=== PATIENT | male | born 1955 | race Caucasian/White ===

== ENCOUNTER 2023-04-12 11:51 | Inpatient (IN) ==
[2023-04-12] MEDS ORDERED: NITROSTAT SL PRN (12:41)
[2023-04-12 15:05] LABS: BASOPHILS # (AUTO) 0.1 X10^3/uL (0.0-0.1); BASOPHILS % (AUTO) 0.7 % (0.2-1.0); EOSINOPHILS # (AUTO) 0.1 x10^3/uL (0.0-0.2); EOSINOPHILS % (AUTO) 1.5 % (0.9-2.9); HEMATOCRIT 41.7 % (42.0-54.0); HEMOGLOBIN 13.9 g/dL (13.5-18.0); LYMPHOCYTES # (AUTO) 1.1 X10^3/uL (1.3-2.9); LYMPHOCYTES % (AUTO) 13.7 % (21.0-51.0); MEAN CORPUSCULAR HEMOGLOBIN 30.4 pg (27.0-34.0); MEAN CORPUSCULAR HGB CONC 33.3 g/dL (33.0-35.0); MEAN CORPUSCULAR VOLUME 91.3 fL (80.0-100.0); MEAN PLATELET VOLUME 7.7 fL (7.4-11.0); MONOCYTES # (AUTO) 0.8 x10^3/uL (0.3-0.8); MONOCYTES % (AUTO) 9.5 % (0.0-13.0); NEUTROPHILS # (AUTO) 6.1 x10^3/uL (2.2-4.8); NEUTROPHILS % (AUTO) 74.6 % (42.0-75.0); PLATELET COUNT 250 X10^3/uL (150.0-450.0); RED BLOOD COUNT 4.57 X10^6/uL (4.7-6.0); RED CELL DISTRIBUTION WIDTH 15.9 % (11.6-16.5); WHITE BLOOD COUNT 8.2 X10^3/uL (3.6-10.0)
[2023-04-12 15:12] LABS: INR 1.29 (0.8-1.3)
[2023-04-12 15:15] LABS: ALANINE AMINOTRANSFERASE 15 Units/L (12-78); ALBUMIN 3.3 g/dL (3.4-5.0); ALKALINE PHOSPHATASE 155 Units/L (46-116); ASPARTATE AMINO TRANSFERASE 15 Units/L (15-37); BLOOD UREA NITROGEN 96 mg/dL (7-18); CARBON DIOXIDE 33.6 mmol/L (21-32); CHLORIDE 100 mmol/L (98-107); COR CA(FOR HYPOALB) 8.6 mg/dL (8.5-10.1); GLUCOSE 91 mg/dL (65-99); POTASSIUM 3.3 mmol/L (3.5-5.1); SODIUM 143 mmol/L (136-145); TOTAL PROTEIN 6.9 g/dL (6.4-8.2); eGFR NON BLACK RACES 18 (>60)
[2023-04-12 15:21] VITALS: BMI 45.8
[2023-04-12] MEDS: LR 1,000 ML IV 1,000 ML IV SCH (15:23)
--- NOTE | 2023-04-12 15:40 | DR.UPDATE ---
H&P UPDATE Review Yes Any changes to H&P?: No
[2023-04-12] MEDS ORDERED: K-DUR TAB 20 MEQ PO ONE (16:00)
[2023-04-12] MEDS ORDERED: PHARMACY CONSULT - POTASSIUM & MAGNESIUM XX SCH (16:00)
[2023-04-12] MEDS: ELIQUIS PO SCH (20:30)
[2023-04-12] MEDS: COREG TAB 25 MG PO SCH (20:30)
[2023-04-12] MEDS: ZOSYN VIAL 2.25 GRAMS 2.25 G in NS 100 ML IV 100 ML IV SCH (22:29)
[2023-04-13] MEDS: LR 1,000 ML IV 1,000 ML IV SCH ×2 (02:35→15:24)
[2023-04-13 06:54] LABS: BLOOD UREA NITROGEN 89 mg/dL (7-18); CARBON DIOXIDE 34.8 mmol/L (21-32); CHLORIDE 100 mmol/L (98-107); GLUCOSE 80 mg/dL (65-99); SODIUM 143 mmol/L (136-145); eGFR NON BLACK RACES 22 (>60)
[2023-04-13 06:59] LABS: POTASSIUM 2.8 mmol/L (3.5-5.1)
[2023-04-13] MEDS ORDERED: PHARMACY CONSULT - POTASSIUM & MAGNESIUM XX SCH (07:00)
[2023-04-13] MEDS: K-DUR TAB 20 MEQ PO SCH ×5 (08:15→20:54)
[2023-04-13] MEDS: MAGNESIUM SULFATE 1 GRAM/100 mL PREMIX 1 G/100 ML BAG IV SCH ×2 (08:15→10:06)
[2023-04-13] MEDS: NS + KCL 20 MEQ/L 1,000 ML IV SCH ×3 (08:15→22:15)
--- NOTE | 2023-04-13 08:46 | RAD ---
HISTORYPreop toe amputationSTUDYAP chestCOMPARISONAugust 2020FINDINGSSimilar cardiomegaly with sternal wires and stable pacemaker position. There is no evidence for pneumonia, pulmonary edema/CHF or significant pleural effusion.IMPRESSIONNo interval change or acute findings.Electronically signed by: MARIA ESTHER ABRAMS (Apr 13, 2023 08:45:40)
[2023-04-13] MEDS ORDERED: LASIX PO SCH (09:00)
[2023-04-13] MEDS ORDERED: ENTRESTO 24/26 MG TABLET PO SCH (09:00)
[2023-04-13] MEDS: ELIQUIS PO SCH ×2 (10:05→20:54)
[2023-04-13] MEDS: COREG TAB 25 MG PO SCH ×2 (10:05→20:56)
[2023-04-13] MEDS: MAG-OX TAB PO SCH ×2 (10:06→20:56)
[2023-04-13] MEDS: LIPITOR TAB 80 MG PO SCH (10:06)
[2023-04-13] MEDS: ZOSYN VIAL 2.25 GRAMS 2.25 G in NS 100 ML IV 100 ML IV SCH ×2 (10:07→20:57)
[2023-04-13] MEDS: PROTONIX TAB 40 MG PO SCH (10:07)
[2023-04-13] MEDS: ZAROXOLYN PO SCH (10:07)
[2023-04-13] MEDS: COLACE CAP 100 MG PO SCH ×2 (12:36→20:55)
[2023-04-13] MEDS ORDERED: COLACE CAP 100 MG PO SCH (14:00)
[2023-04-13] MEDS: PERCOCET TAB 5/325 MG PO PRN ×2 (16:39→21:30)
[2023-04-13] MEDS: MILK OF MAGNESIA PO SCH (20:54)
[2023-04-14] MEDS: LR 1,000 ML IV 1,000 ML IV SCH ×2 (04:00→17:48)
[2023-04-14 05:49] LABS: BASOPHILS # (AUTO) 0.1 X10^3/uL (0.0-0.1); BASOPHILS % (AUTO) 0.7 % (0.2-1.0); EOSINOPHILS # (AUTO) 0.1 x10^3/uL (0.0-0.2); EOSINOPHILS % (AUTO) 0.9 % (0.9-2.9); HEMOGLOBIN 13.8 g/dL (13.5-18.0); LYMPHOCYTES # (AUTO) 0.7 X10^3/uL (1.3-2.9); LYMPHOCYTES % (AUTO) 7.1 % (21.0-51.0); MEAN CORPUSCULAR HEMOGLOBIN 30.8 pg (27.0-34.0); MEAN CORPUSCULAR HGB CONC 33.7 g/dL (33.0-35.0); MEAN CORPUSCULAR VOLUME 91.3 fL (80.0-100.0); MONOCYTES % (AUTO) 10.1 % (0.0-13.0); NEUTROPHILS # (AUTO) 8.1 x10^3/uL (2.2-4.8); NEUTROPHILS % (AUTO) 81.2 % (42.0-75.0); PLATELET COUNT 242 X10^3/uL (150.0-450.0); RED BLOOD COUNT 4.49 X10^6/uL (4.7-6.0); RED CELL DISTRIBUTION WIDTH 15.8 % (11.6-16.5)
[2023-04-14 06:08] LABS: CALCIUM 8.4 mg/dL (8.5-10.1); CARBON DIOXIDE 33.7 mmol/L (21-32); COR CA(FOR HYPOALB) 9.2 mg/dL (8.5-10.1); CREATININE 2.67 mg/dL (0.70-1.30); POTASSIUM 3.4 mmol/L (3.5-5.1); TOTAL PROTEIN 6.7 g/dL (6.4-8.2)
[2023-04-14] MEDS: COREG TAB 25 MG PO SCH ×2 (09:24→20:49)
[2023-04-14] MEDS: COLACE CAP 100 MG PO SCH ×2 (09:24→20:48)
[2023-04-14] MEDS: ELIQUIS PO SCH ×2 (09:25→20:48)
[2023-04-14] MEDS: K-DUR TAB 20 MEQ PO SCH ×2 (09:25→20:49)
[2023-04-14] MEDS: LIPITOR TAB 80 MG PO SCH (09:25)
[2023-04-14] MEDS: ZOSYN VIAL 2.25 GRAMS 2.25 G in NS 100 ML IV 100 ML IV SCH ×2 (09:26→20:51)
[2023-04-14] MEDS: ZAROXOLYN PO SCH (09:26)
[2023-04-14] MEDS: MAG-OX TAB PO SCH ×2 (09:26→20:49)
[2023-04-14] MEDS: PROTONIX TAB 40 MG PO SCH (09:26)
[2023-04-14] MEDS: NS + KCL 20 MEQ/L 1,000 ML IV SCH ×2 (11:46→23:05)
[2023-04-14] MEDS: PERCOCET TAB 5/325 MG PO PRN ×2 (15:25→20:13)
[2023-04-14] MEDS: MILK OF MAGNESIA PO SCH (20:51)
--- NOTE | 2023-04-14 23:52 | NOTE.SOAP ---
Soap Note Note for Day of Date of Exam: 04/13/23 Subjective Data Subjective Data: PAtient c/o pain right leg. Receiving antibiotics Objective Data Temperature: 99 F Pulse Rate: 70 Respiratory Rate: 20 Blood Pressure: 165/77 O2 Sat by Pulse Oximetry: 98 Objective Data: Redness improving right foot. Cr=3.1, WBC=10 Assessment Assessment: Ischemic right foot , possible infection Plan Plan: Unable to perform CTA due to elevated creatinine. Redness improving with elevation and IV antibiotics. Will hold Lasix and and continue IV hydration.
--- NOTE | 2023-04-14 23:59 | NOTE.SOAP ---
Soap Note Note for Day of Date of Exam: 04/14/23 Subjective Data Subjective Data: Still c/o right leg pain consistent with ischemia . Objective Data Temperature: 97.7 F Pulse Rate: 76 Respiratory Rate: 20 Blood Pressure: 150/72 O2 Sat by Pulse Oximetry: 98 Objective Data: Redness continues to improve . Cr decreased to 2.76.No increased SOB since the Lasix was stopped. Assessment Assessment: Ischemic right foot. Possible infection Plan Plan: On table arteriogram in AM and possible right leg arterial intervention.
[2023-04-15] MEDS: LR 1,000 ML IV 1,000 ML IV SCH ×2 (05:34→19:21)
--- NOTE | 2023-04-15 06:05 | EKG ---
Test Reason : cp Blood Pressure : */* mmHG Vent. Rate : 73 BPM Atrial Rate : 73 BPM P-R Int : 112 ms QRS Dur : 160 ms QT Int : 510 ms P-R-T Axes : 83 160 92 degrees QTc Int : 561 ms Atrial-sensed ventricular-paced rhythm Biventricular pacemaker detected Abnormal ECG No previous ECGs available Confirmed by Greg Crooks ([id number]) on 04/15/2023 7:56:41 PM Referred By: Confirmed By: Greg Crooks
[2023-04-15 08:26] LABS: CALCIUM 8.2 mg/dL (8.5-10.1); CARBON DIOXIDE 33.4 mmol/L (21-32); CREATININE 2.53 mg/dL (0.70-1.30); POTASSIUM 3.9 mmol/L (3.5-5.1)
[2023-04-15] MEDS: ZOSYN VIAL 2.25 GRAMS 2.25 G in NS 100 ML IV 100 ML IV SCH ×2 (08:40→20:39)
[2023-04-15] MEDS ORDERED: VERSED ONE (10:14)
[2023-04-15] MEDS ORDERED: FENTANYL VIAL INJ 100 mcg ONE (10:14)
[2023-04-15] MEDS ORDERED: DIPRIVAN VIAL 20 ML ONE ×2 (10:15→13:08)
[2023-04-15] MEDS ORDERED: HEPARIN SODIUM INJ 5000 UNITS ONE ×2 (10:19→12:45)
[2023-04-15] MEDS ORDERED: MARCAINE 0.5% ONE (10:22)
[2023-04-15] MEDS ORDERED: HEPARIN SODIUM IN D5W 75,000 UNITS/1,500 ML BAG ONE (10:22)
[2023-04-15] MEDS ORDERED: NS 1,000 ML IV 1,000 ML ONE (10:39)
[2023-04-15] MEDS ORDERED: KETAMINE HCL ONE (11:20)
[2023-04-15] MEDS ORDERED: NS 500 ML IV 500 ML IV ONE (12:46)
--- NOTE | 2023-04-15 13:47 | OR.IMMED ---
IMMEDIATE POST-OP NOTE Immediate Post-Op Note Pre-Op Diagnosis: critical ischemia right leg with impending loss of foot Post-Op Diagnosis: same Procedure: arteriogram right leg, atherectomy and angioplasty right anterior tibial artery and right tibial peroneal trunk. Description of Procedure: see operative summary Surgeon/Laundry Equipment Operator: Breonna Findings: stenosis right tibial peroneal trunk, complete total occlusion proximal right anterior tibial artery, posterior tibial completely occluded, reconstitution of right peroneal artery. Estimated Blood Loss: 100 cc Complications: none Progress Notes: Return to floor, diet and begin Eliquis.
[2023-04-15] MEDS: K-DUR TAB 20 MEQ PO SCH ×2 (15:18→20:39)
[2023-04-15] MEDS: LIPITOR TAB 80 MG PO SCH (15:18)
[2023-04-15] MEDS: COREG TAB 25 MG PO SCH ×2 (15:18→20:39)
[2023-04-15] MEDS: MAG-OX TAB PO SCH ×2 (15:19→20:40)
[2023-04-15] MEDS: ELIQUIS PO SCH ×2 (15:19→22:10)
[2023-04-15] MEDS: ZAROXOLYN PO SCH (15:19)
[2023-04-15] MEDS: COLACE CAP 100 MG PO SCH ×2 (15:19→20:39)
[2023-04-15] MEDS: PROTONIX TAB 40 MG PO SCH (15:19)
[2023-04-15] MEDS: NS + KCL 20 MEQ/L 1,000 ML IV SCH (15:45)
[2023-04-15] MEDS: MILK OF MAGNESIA PO SCH (20:39)
[2023-04-15] MEDS ORDERED: ELIQUIS PO SCH (21:00)
[2023-04-16] MEDS: LR 1,000 ML IV 1,000 ML IV SCH ×3 (05:00→20:44)
[2023-04-16 05:51] LABS: BASOPHILS % (AUTO) 0.3 % (0.2-1.0); EOSINOPHILS # (AUTO) 0.1 x10^3/uL (0.0-0.2); EOSINOPHILS % (AUTO) 0.8 % (0.9-2.9); HEMATOCRIT 34.2 % (42.0-54.0); LYMPHOCYTES # (AUTO) 0.7 X10^3/uL (1.3-2.9); LYMPHOCYTES % (AUTO) 6.8 % (21.0-51.0); MEAN CORPUSCULAR HEMOGLOBIN 30.6 pg (27.0-34.0); MEAN CORPUSCULAR HGB CONC 33.3 g/dL (33.0-35.0); MEAN PLATELET VOLUME 8.5 fL (7.4-11.0); MONOCYTES # (AUTO) 0.9 x10^3/uL (0.3-0.8); NEUTROPHILS # (AUTO) 8.2 x10^3/uL (2.2-4.8); NEUTROPHILS % (AUTO) 83.1 % (42.0-75.0); PLATELET COUNT 208 X10^3/uL (150.0-450.0); RED BLOOD COUNT 3.72 X10^6/uL (4.7-6.0); RED CELL DISTRIBUTION WIDTH 15.4 % (11.6-16.5); WHITE BLOOD COUNT 9.9 X10^3/uL (3.6-10.0)
[2023-04-16 05:52] LABS: HEMOGLOBIN 11.4 g/dL (13.5-18.0)
[2023-04-16 05:55] LABS: CALCIUM 8.1 mg/dL (8.5-10.1); CARBON DIOXIDE 32.1 mmol/L (21-32); CREATININE 2.25 mg/dL (0.70-1.30); POTASSIUM 4.4 mmol/L (3.5-5.1)
[2023-04-16] MEDS: COLACE CAP 100 MG PO SCH ×2 (08:44→20:41)
[2023-04-16] MEDS: COREG TAB 25 MG PO SCH ×2 (08:44→20:42)
[2023-04-16] MEDS: K-DUR TAB 20 MEQ PO SCH ×2 (08:46→20:46)
[2023-04-16] MEDS: ELIQUIS PO SCH ×2 (08:46→20:41)
[2023-04-16] MEDS: LIPITOR TAB 80 MG PO SCH (08:46)
[2023-04-16] MEDS: PROTONIX TAB 40 MG PO SCH (08:47)
[2023-04-16] MEDS: MAG-OX TAB PO SCH ×2 (08:47→20:45)
[2023-04-16] MEDS: ZAROXOLYN PO SCH (08:48)
[2023-04-16] MEDS: ZOSYN VIAL 2.25 GRAMS 2.25 G in NS 100 ML IV 100 ML IV SCH ×2 (08:52→20:39)
[2023-04-16] MEDS: NovoLIN R (or HumuLIN R) SC PRN ×3 (12:20→21:51)
--- NOTE | 2023-04-16 15:22 | NOTE.SOAP ---
Soap Note Note for Day of Date of Exam: 04/16/23 Subjective Data Subjective Data: Patient seen bedside today with nursing staff and present. Patient is in the middle of breathing treatment and has cpap on. This makes conversation difficult. Patient is known to Dr. Galvin and Dr. Ellsworth. Denies f,c,n,v, and cp at time of interview. Admits SOB. Objective Data Objective Data: Right foot demonstrates gangrenous digits to 2-4 with discoloration of the hallux and 5th digit. There is malodor and purulence appreciated at the junction between the dysvascular tissue and what appears to be viable skin. There is a faintly palpable DP on the right side, I cannot palpate a PT. CFT is delayed/sluggish to all digits of the right foot. Pedal hair absent. Mild non- pitting edema present to pretibial region bilaterally. Protective senation is diminished in distal extremities in stocking distribution bilaterally. No focal deficits. Left sided BKA noted. Assessment Assessment: -Gangrene of the right foot -PAD with tissue loss - s/p revascularization procedure with Dr. 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 Ellsworth for TMA of the right side. - NPO after midnight. Consent to be placed on chart prior to surgery. - Continue antibiotics. Cultures taken in office showed Coag Negative Staph with no resistances. - Betadine paint to toes with gauze digits. - WBAT from a foot and ankle POV, however, may need to limit motion after Dr. Ravi's procedure, per his notes/orders. - Will follow
[2023-04-16] MEDS: PERCOCET TAB 5/325 MG PO PRN (15:50)
[2023-04-16] MEDS: VIBRAMYCIN PO SCH ×2 (16:42→20:41)
[2023-04-16] MEDS: MILK OF MAGNESIA PO SCH (20:41)
--- NOTE | 2023-04-17 | NOTE.SOAP ---
Soap Note Note for Day of Date of Exam: 04/16/23 Subjective Data Subjective Data: POD # 1 after revascularization of the right leg. Doing well. Discussed right transmetatarsal amputation with Podiatry Objective Data Temperature: 97.7 F Pulse Rate: 76 Respiratory Rate: 70 Blood Pressure: 150/72 O2 Sat by Pulse Oximetry: 98 Objective Data: Gangrenous skin of the distal toes right foot. Excellent doppler signals rightg DP and PT.Hgb=11.4, Cr=2.25 Assessment Assessment: S/P successful revascularization right foot Plan Plan: Podiatry planning right TMA tomorrow.
[2023-04-17] MEDS ORDERED: PHARMACY CONSULT - POTASSIUM & MAGNESIUM XX SCH (02:00)
[2023-04-17] MEDS: ELIQUIS PO SCH ×2 (08:25→21:54)
[2023-04-17] MEDS: PROTONIX TAB 40 MG PO SCH (08:25)
[2023-04-17] MEDS: COLACE CAP 100 MG PO SCH ×2 (08:25→21:54)
[2023-04-17] MEDS: LIPITOR TAB 80 MG PO SCH (08:25)
[2023-04-17] MEDS: VIBRAMYCIN PO SCH ×2 (08:26→21:54)
[2023-04-17] MEDS: LR 1,000 ML IV 1,000 ML IV SCH ×2 (11:31→23:00)
[2023-04-17] MEDS ORDERED: MARCAINE 0.25% INJ ONE (11:45)
[2023-04-17] MEDS ORDERED: NS 100 ML IV 100 ML ONE (11:48)
[2023-04-17] MEDS ORDERED: LR 1,000 ML IV 1,000 ML IV ONE (11:48)
[2023-04-17] MEDS ORDERED: VERSED ONE (11:49)
[2023-04-17] MEDS ORDERED: FENTANYL VIAL INJ 250 mcg ONE (11:49)
--- NOTE | 2023-04-17 11:50 | NOTE.SOAP ---
Soap Note Note for Day of Date of Exam: 04/17/23 Subjective Data Subjective Data: patient seen bedside today. using CPAP. present. no issues. seeing for gangrene of the right foot. hx of left leg ampuation. Objective Data Objective Data: right foot with gangrene and necrosis of toes 2,3,4 of the distal protion dorsally. nail involvement. toes arm. CFT instant to palntar flap under pulp of toe. Assessment Assessment: 67 M with gangrene with the right forefoot toes 2,3,4. s/p intervention by vascular with revacularization. Plan Plan: discussed with and patient options. discussed possible need for MILO. discussed TMA vs. toe disarticulation vs. partial digital amputations. I feel that we may be able to do partial digital amputations of toes 2,3,4 and not have to be more aggressive. this may allow for WB in sx shoe after surgery to allow for transfers. if have to take all the toes will need MILO and splint. we will make intra op decision and and patient agree. i feel perfusion to the foot at this time should be adequate after speaking with Dr. Ravi and reviewing notes and studies.
[2023-04-17] MEDS ORDERED: FENTANYL VIAL INJ 100 mcg ONE (11:51)
[2023-04-17] MEDS ORDERED: DIPRIVAN VIAL 20 ML ONE (11:52)
[2023-04-17] MEDS ORDERED: ANCEF VIAL 1 GRAM ONE ×2 (11:52→11:53)
[2023-04-17] MEDS ORDERED: KETAMINE HCL ONE (12:00)
[2023-04-17] MEDS ORDERED: NARCAN INJ ONE ×2 (12:15→12:19)
[2023-04-17] MEDS ORDERED: BRIDION ONE (12:57)
[2023-04-17 17:02] VITALS: RESP 20
[2023-04-17] MEDS: ZAROXOLYN PO SCH (17:02)
[2023-04-17] MEDS: COREG TAB 25 MG PO SCH ×2 (17:02→21:54)
[2023-04-17] MEDS: ZOSYN VIAL 2.25 GRAMS 2.25 G in NS 100 ML IV 100 ML IV SCH ×2 (17:03→21:54)
[2023-04-17] MEDS: PERCOCET TAB 5/325 MG PO PRN ×2 (19:45→19:46)
[2023-04-17] MEDS: MILK OF MAGNESIA PO SCH (21:54)
[2023-04-17] MEDS: NovoLIN R (or HumuLIN R) SC PRN (21:55)
--- NOTE | 2023-04-17 23:36 | NOTE.SOAP ---
Soap Note Note for Day of Date of Exam: 04/17/23 Subjective Data Subjective Data: S/p Partial amputation of toes 2,3 and 4 on the right foot. All wounds closed. Good bleeding according to doctor Jodee. Objective Data Temperature: 98.3 F Pulse Rate: 73 Respiratory Rate: 20 Blood Pressure: 129/71 O2 Sat by Pulse Oximetry: 93 Objective Data: As above . Right foot with biphasic doppler signals of the PT and DP Assessment Assessment: S/p revascularization right foot and partial amputations of right toes 2,3 and 4. Plan Plan: Discharge home in the AM. Will be on Xarelto and aspirin.
[2023-04-18] MEDS: COLACE CAP 100 MG PO SCH (09:07)
[2023-04-18] MEDS: ELIQUIS PO SCH (09:08)
[2023-04-18] MEDS: ZAROXOLYN PO SCH (09:08)
[2023-04-18] MEDS: LIPITOR TAB 80 MG PO SCH (09:08)
[2023-04-18] MEDS: PROTONIX TAB 40 MG PO SCH (09:08)
[2023-04-18] MEDS: COREG TAB 25 MG PO SCH (09:08)
[2023-04-18] MEDS: ZOSYN VIAL 2.25 GRAMS 2.25 G in NS 100 ML IV 100 ML IV SCH (09:09)
[2023-04-18] MEDS: VIBRAMYCIN PO SCH (09:09)
[2023-04-18 12:21] VITALS: BP 133/63; PULSE 70; TEMP 97.9; O2SAT 93
[2023-04-18] MEDS: LR 1,000 ML IV 1,000 ML IV SCH (12:25)
--- NOTE | 2023-04-18 12:43 | W.DIS.FURT ---
Summary of Discharge Discharge Summary of Date Date of Exam: 04/18/23 Admission Date Date of Admission: 04/12/23 Admission Diagnosis Hospital Course: This is a 68 year old male who I saw originally in 2020 for an ischemic right leg requiring drug-coated balloon angioplasty of the right popliteal artery and superficial femoral arteries . At that time he had poor run off but I was unable to get a wire across the runoff. He has done well with relief of pain until 04/12/2023 when he was sent to my office with severe ischemic changes of the right foot with dry gangrene of the tips of the second ,third and fourth toes as well as dependent rubor and possible cellulitis. Past medical history of congestive heart failure ( on Entresto) history of left below knee amputation after failed bypass. Also with history of coronary artery disease which is stable , hypertension, and chronic kidney disease. On seeing him with these problems he was admitted with plans to begin IV antibiotics and to do a CT angiogram ,however his creatinine was greater than 3.5. He was hydrated and I actually held his Lasix and monitored any increase of shortness of breath or exacerbation of his heart failure , and this did not happen . We did not do a CT angiogram and just planned on table arteriogram to limit his IV dye load His creatinine came down to approximately 2.5. Admission was April 12. On April 15 and was taken to the operating suite where on table arteriogram showed severe disease of the right tibial peroneal trunk and completely occluded right posterior tibial artery with occluded proximal right anterior tibial artery with reconstitution of the peroneal artery . He underwent antegrade approach through the dorsalis pedis artery to perform atherectomy and balloon angioplasty of the right anterior tibial artery with atherectomy and drug coated balloon angioplasty of the right tibial peroneal trunk. He was continued on IV antibiotics. He was seen in consultation by Podiatry who had referred him for admission for failure to thrive and these c/o pain and redness and tissue loss of the right foot. After revasculariation ,Podiatry recommended and performed amputations of the tips of the right second ,third and fourth toes. He is doing well. He has biphasic Doppler signals of the right dorsalis pedis and posterior tibial arteries at the ankle Drssing is intact over his right foot. He will be discharged home on his usual medications including , restarting his Lasix and continue Eliquis and Plavix. He will be given a prescription for Percocet 5 mg tablets, one every six hours PRN pain. He will follow up me in 1 week. He has had an excellent result. He will continue Clindamycin 150 mg po QID x 7 days Vital Signs: Vital Signs (72 hours) 04/17/23 00:00 04/17/23 23:36 04/15/23 13:40 Temperature 97.7 F 98.3 F 99.1 F Pulse Rate 76 73 73 Pulse Rate [Left Radial] Respiratory Rate 70 H 20 18 Blood Pressure 150/72 129/71 127/57 Blood Pressure [Right Arm] O2 Sat by Pulse Oximetry 98 93 L Oxygen Delivery Method Oxygen Flow Rate FIO2% 04/15/23 13:55 04/15/23 14:10 04/15/23 14:20 Temperature 98.2 F 98.3 F 98.2 F Pulse Rate 71 71 72 Pulse Rate [Left Radial] Respiratory Rate 18 20 18 Blood Pressure 137/79 138/66 142/65 Blood Pressure [Right Arm] O2 Sat by Pulse Oximetry Oxygen Delivery Method Oxygen Flow Rate FIO2% 04/15/23 14:40 04/15/23 15:40 04/15/23 13:40 Temperature 98.2 F 99.7 F H 99.1 F Pulse Rate 74 75 Pulse Rate [Left Radial] 73 Respiratory Rate 18 20 18 Blood Pressure 141/63 140/66 Blood Pressure [Right Arm] 127/57 O2 Sat by Pulse Oximetry 95 Oxygen Delivery Method Nasal Cannula Oxygen Flow Rate FIO2% 04/15/23 13:55 04/15/23 14:10 04/15/23 14:25 Temperature 98.2 F 98.3 F 99.3 F Pulse Rate Pulse Rate [Left Radial] 71 71 73 Respiratory Rate 18 20 20 Blood Pressure Blood Pressure [Right Arm] 137/79 138/66 142/65 O2 Sat by Pulse Oximetry 96 97 95 Oxygen Delivery Method Nasal Cannula Nasal Cannula Nasal Cannula Oxygen Flow Rate FIO2% 04/15/23 14:40 04/15/23 15:40 04/15/23 16:40 Temperature 99.3 F 99.7 F H 99.7 F H Pulse Rate Pulse Rate [Left Radial] 78 75 75 Respiratory Rate 20 20 20 Blood Pressure Blood Pressure [Right Arm] 141/63 140/66 144/65 O2 Sat by Pulse Oximetry 96 92 L 92 L Oxygen Delivery Method CPAP CPAP CPAP Oxygen Flow Rate FIO2% 04/15/23 17:40 04/15/23 18:46 04/15/23 19:15 Temperature 99.4 F 98.7 F 99.2 F Pulse Rate 75 73 75 Pulse Rate [Left Radial] Respiratory Rate 20 20 20 Blood Pressure 130/60 Blood Pressure [Right Arm] O2 Sat by Pulse Oximetry Oxygen Delivery Method Oxygen Flow Rate FIO2% 04/15/23 20:00 04/15/23 19:00 04/15/23 21:00 Temperature 98.2 F Pulse Rate Pulse Rate [Left Radial] 73 Respiratory Rate 18 Blood Pressure Blood Pressure [Right Arm] 145/62 O2 Sat by Pulse Oximetry 94 L Oxygen Delivery Method CPAP Nasal Cannula Nasal Cannula Oxygen Flow Rate 2 3 FIO2% 32 04/16/23 00:00 04/16/23 04:00 04/16/23 07:00 Temperature 98.0 F 98.4 F Pulse Rate Pulse Rate [Left Radial] 80 77 Respiratory Rate 18 18 Blood Pressure Blood Pressure [Right Arm] 155/68 136/63 O2 Sat by Pulse Oximetry 97 92 L Oxygen Delivery Method CPAP CPAP Nasal Cannula Oxygen Flow Rate 2 FIO2% 04/16/23 08:00 04/16/23 12:00 04/16/23 16:00 Temperature 98.8 F 99.6 F 99.9 F H Pulse Rate Pulse Rate [Left Radial] 73 73 83 Respiratory Rate 18 18 20 Blood Pressure Blood Pressure [Right Arm] 126/60 140/67 128/58 O2 Sat by Pulse Oximetry 90 L 96 92 L Oxygen Delivery Method Nasal Cannula Nasal Cannula Nasal Cannula Oxygen Flow Rate FIO2% 04/16/23 15:50 04/16/23 16:50 04/16/23 20:00 Temperature 98.0 F Pulse Rate Pulse Rate [Left Radial] 83 Respiratory Rate 20 20 20 Blood Pressure Blood Pressure [Right Arm] 137/72 O2 Sat by Pulse Oximetry 93 L Oxygen Delivery Method Room Air Oxygen Flow Rate FIO2% 04/16/23 19:00 04/16/23 20:05 04/17/23 00:00 Temperature 99.9 F H Pulse Rate Pulse Rate [Left Radial] 87 Respiratory Rate 20 Blood Pressure Blood Pressure [Right Arm] 164/82 O2 Sat by Pulse Oximetry 93 L Oxygen Delivery Method Nasal Cannula Nasal Cannula Room Air Oxygen Flow Rate 2 2 FIO2% 28 04/17/23 04:00 04/17/23 08:00 04/17/23 07:00 Temperature 99.1 F 98.8 F Pulse Rate Pulse Rate [Left Radial] 81 78 Respiratory Rate 20 18 Blood Pressure Blood Pressure [Right Arm] 162/68 136/64 O2 Sat by Pulse Oximetry 92 L 94 L Oxygen Delivery Method Room Air Room Air Nasal Cannula Oxygen Flow Rate 2 FIO2% 04/17/23 10:53 04/17/23 11:54 04/17/23 13:15 Temperature 98.0 F Pulse Rate 81 Pulse Rate [Left Radial] 74 Respiratory Rate 19 21 Blood Pressure 170/85 Blood Pressure [Right Arm] 146/84 O2 Sat by Pulse Oximetry 100 100 Oxygen Delivery Method CPAP Room Air Room Air Oxygen Flow Rate 3 FIO2% 32 04/17/23 13:30 04/17/23 13:45 04/17/23 14:00 Temperature 98.0 F 98.1 F 98.3 F Pulse Rate Pulse Rate [Left Radial] 76 75 73 Respiratory Rate 20 20 21 Blood Pressure Blood Pressure [Right Arm] 147/78 143/75 143/75 O2 Sat by Pulse Oximetry 100 99 99 Oxygen Delivery Method Room Air Room Air Room Air Oxygen Flow Rate FIO2% 04/17/23 14:15 04/17/23 15:15 04/17/23 16:15 Temperature 98.2 F 99.1 F 99.3 F Pulse Rate Pulse Rate [Left Radial] 73 75 72 Respiratory Rate 21 22 20 Blood Pressure Blood Pressure [Right Arm] 145/72 141/76 138/65 O2 Sat by Pulse Oximetry 98 97 98 Oxygen Delivery Method Room Air Room Air Room Air Oxygen Flow Rate FIO2% 04/17/23 17:15 04/17/23 18:12 04/17/23 19:46 Temperature 98.3 F 98.3 F Pulse Rate Pulse Rate [Left Radial] 73 76 Respiratory Rate 20 20 20 Blood Pressure Blood Pressure [Right Arm] 139/71 129/62 O2 Sat by Pulse Oximetry 93 L 93 L Oxygen Delivery Method Room Air Room Air Oxygen Flow Rate FIO2% 04/17/23 20:46 04/17/23 19:00 04/17/23 20:00 Temperature 98.7 F Pulse Rate Pulse Rate [Left Radial] 77 Respiratory Rate 20 20 Blood Pressure Blood Pressure [Right Arm] 140/63 O2 Sat by Pulse Oximetry 96 Oxygen Delivery Method Nasal Cannula Nasal Cannula Oxygen Flow Rate 2 2 FIO2% 04/18/23 00:00 04/17/23 21:32 04/17/23 21:32 Temperature 98.6 F Pulse Rate 76 Pulse Rate [Left Radial] 71 Respiratory Rate 20 Blood Pressure Blood Pressure [Right Arm] 142/75 O2 Sat by Pulse Oximetry 96 94 L Oxygen Delivery Method Nasal Cannula Nasal Cannula Oxygen Flow Rate 2 3 FIO2% 32 04/18/23 04:00 04/18/23 08:00 04/18/23 07:00 Temperature 98 F 98.1 F Pulse Rate Pulse Rate [Left Radial] 72 73 Respiratory Rate 20 20 Blood Pressure Blood Pressure [Right Arm] 144/62 140/63 O2 Sat by Pulse Oximetry 98 92 L Oxygen Delivery Method Nasal Cannula Nasal Cannula Nasal Cannula Oxygen Flow Rate 2 2 2 FIO2% Labs: Laboratory Last Values WBC 9.9 X10^3/uL (3.6-10.0) 04/16/23 05:16 RBC 3.72 X10^6/uL (4.7-6.0) L 04/16/23 05:16 Hgb 11.4 g/dL (13.5-18.0) L D 04/16/23 05:16 Hct 34.2 % (42.0-54.0) L 04/16/23 05:16 MCV 92.0 fL (80.0-100.0) 04/16/23 05:16 MCH 30.6 pg (27.0-34.0) 04/16/23 05:16 MCHC 33.3 g/dL (33.0-35.0) 04/16/23 05:16 RDW 15.4 % (11.6-16.5) 04/16/23 05:16 Plt Count 208 X10^3/uL (150.0-450.0) 04/16/23 05:16 MPV 8.5 fL (7.4-11.0) 04/16/23 05:16 Neut % (Auto) 83.1 % (42.0-75.0) H 04/16/23 05:16 Lymph % (Auto) 6.8 % (21.0-51.0) L 04/16/23 05:16 [place] % (Auto) 9.0 % (0.0-13.0) 04/16/23 05:16 Eos % (Auto) 0.8 % (0.9-2.9) L 04/16/23 05:16 Baso % (Auto) 0.3 % (0.2-1.0) 04/16/23 05:16 Neut # (Auto) 8.2 x10^3/uL (2.2-4.8) H 04/16/23 05:16 Lymph # (Auto) 0.7 X10^3/uL (1.3-2.9) L 04/16/23 05:16 [place] # (Auto) 0.9 x10^3/uL (0.3-0.8) H 04/16/23 05:16 Eos # (Auto) 0.1 x10^3/uL (0.0-0.2) 04/16/23 05:16 Baso # (Auto) 0.0 X10^3/uL (0.0-0.1) 04/16/23 05:16 Absolute Nucleated RBC 0.0 /100WBC 04/16/23 05:16 PT 15.9 SECONDS (11.8-14.3) 04/12/23 14:51 INR Target Range - 04/12/23 14:51 INR 1.29 (0.8-1.3) 04/12/23 14:51 Sodium 140 mmol/L (136-145) 04/16/23 05:16 Corrected Sodium 141 mmol/L (136-145) 04/16/23 05:16 Potassium 4.4 mmol/L (3.5-5.1) 04/16/23 05:16 Chloride 102 mmol/L (98-107) 04/16/23 05:16 Carbon Dioxide 32.1 mmol/L (21-32) H 04/16/23 05:16 BUN 66 mg/dL (7-18) H 04/16/23 05:16 Creatinine 2.25 mg/dL (0.70-1.30) H 04/16/23 05:16 Est GFR (MDRD) Af Amer 38 (>60) L 04/16/23 05:16 Est GFR (MDRD) Non-Af 31 (>60) L 04/16/23 05:16 Glucose 156 mg/dL (65-99) H 04/16/23 05:16 POC Glucose (mg/dL) 151 mg/dL (65-99) H 04/18/23 10:54 Calcium 8.1 mg/dL (8.5-10.1) L 04/16/23 05:16 Corrected Calcium 9.2 mg/dL (8.5-10.1) 04/14/23 05:34 Magnesium 2.7 mg/dL (2.0-2.9) 04/16/23 05:16 Total Bilirubin 0.70 mg/dL (0.2-1.0) 04/14/23 05:34 AST 14 Units/L (15-37) L 04/14/23 05:34 ALT 14 Units/L (12-78) 04/14/23 05:34 Alkaline Phosphatase 147 Units/L (46-116) H 04/14/23 05:34 Total Protein 6.7 g/dL (6.4-8.2) 04/14/23 05:34 Albumin 3.0 g/dL (3.4-5.0) L 04/14/23 05:34 Globulin 3.7 g/dL (2.5-4.5) 04/14/23 05:34 Albumin/Globulin Ratio 0.8 Ratio (1.1-2.1) L 04/14/23 05:34 Reason For Visit: CRITICAL ISCHEMIA AND TISSUE LOSS LOWER EXTREMITY Discharge Date Discharge Date: 04/18/23 Discharge Diagnosis All Active Problems (Updated 04/18/23 @ 11:55 by Yusuf Ravi) Essential (primary) hypertension (Acute) Coronary artery disease (Acute) Chronic kidney disease (CKD) stage G2/A3, mildly decreased glomerular filtration rate (GFR) between 60-89 mL/min/1.73 square meter and albuminuria creatinine ratio greater than 300 mg/g (Acute) Type 2 diabetes mellitus without complications (Acute) History of left below knee amputation (Acute) Congestive heart failure (Acute) Critical limb ischemia of right lower extremity (Acute) Plan of Treatment: Continue with present treatment and follow up plan. Pt is to keep follow up appointment as instructed and take medications as ordered. Discharge Medications Discharge Medications: No Known Drug Allergies Allergy (Verified 07/24/21 07:05) CONTINUE taking the following medications apixaban 5 mg tablet (Eliquis) 5 mg PO BID 04/12/23 [History] atorvastatin 80 mg tablet 80 mg PO HS 04/12/23 [History] carvedilol 25 mg tablet 25 mg PO BID 04/12/23 [History] clopidogrel 75 mg tablet 75 mg PO QDAY 04/12/23 [History] furosemide 40 mg tablet 40 mg PO BID 04/12/23 [History] insulin glargine 100 unit/mL (3 mL) subcutaneous pen (Lantus Solostar U-100 Insulin) 67 unit subcut DAILY 04/12/23 [History] metolazone 5 mg tablet 2.5 mg PO QDAY PRN 04/12/23 [History] pantoprazole 40 mg tablet,delayed release 40 mg PO QDAY 04/12/23 [History] potassium chloride 20 mEq tablet,extended release 20 meq PO QDAY 04/12/23 [History] sacubitril 24 mg-valsartan 26 mg tablet (Entresto) 1 tab PO DAILY 04/12/23 [History] Percocet 5mg, 1 po q 6 hr PRN pain Clindamycin 150 mg , 1 po qid. Discharge Disposition Assessment: Home . See hospital course Discharge Plan Discharge Plan Hospital Course: This is a 68 year old male who I saw originally in 2020 for an ischemic right leg requiring drug-coated balloon angioplasty of the right popliteal artery and superficial femoral arteries . At that time he had poor run off but I was unable to get a wire across the runoff. He has done well with relief of pain until 04/12/2023 when he was sent to my office with severe ischemic changes of the right foot with dry gangrene of the tips of the second ,third and fourth toes as well as dependent rubor and possible cellulitis. Past medical history of congestive heart failure ( on Entresto) history of left below knee amputation after failed bypass. Also with history of coronary artery disease which is stable , hypertension, and chronic kidney disease. On seeing him with these problems he was admitted with plans to begin IV antibiotics and to do a CT angiogram ,however his creatinine was greater than 3.5. He was hydrated and I actually held his Lasix and monitored any increase of shortness of breath or exacerbation of his heart failure , and this did not happen . We did not do a CT angiogram and just planned on table arteriogram to limit his IV dye load His creatinine came down to approximately 2.5. Admission was April 12. On April 15 and was taken to the operating suite where on table arteriogram showed severe disease of the right tibial peroneal trunk and completely occluded right posterior tibial artery with occluded proximal right anterior tibial artery with reconstitution of the peroneal artery . He underwent antegrade approach through the dorsalis pedis artery to perform atherectomy and balloon angioplasty of the right anterior tibial artery with atherectomy and drug coated balloon angioplasty of the right tibial peroneal trunk. He was continued on IV antibiotics. He was seen in consultation by Podiatry who had referred him for admission for failure to thrive and these c/o pain and redness and tissue loss of the right foot. After revasculariation ,Podiatry recommended and performed amputations of the tips of the right second ,third and fourth toes. He is doing well. He has biphasic Doppler signals of the right dorsalis pedis and posterior tibial arteries at the ankle Drssing is intact over his right foot. He will be discharged home on his usual medications including , restarting his Lasix and continue Eliquis and Plavix. He will be given a prescription for Percocet 5 mg tablets, one every six hours PRN pain. He will follow up me in 1 week. He has had an excellent result. He will continue Clindamycin 150 mg po QID x 7 days Patient Disposition: HOME, SELF-CARE Condition: Stable Health Concerns: Post Hospitalization: new medications and changes needed to prevent readmission or further decline. Pt educated and given instructions on all concerns. Plan of Treatment: Continue with present treatment and follow up plan. Pt is to keep follow up appointment as instructed and take medications as ordered. Assessment: Home . See hospital course Prescription drug monitoring program results: PDMP reviewed and no concerns identified Prescriptions: New oxycodone-acetaminophen [Percocet] 5-325 mg tablet 1 tab PO Q6H MDD 4 PRNQty: 30 0RF clindamycin HCl 150 mg capsule 150 mg PO QID Qty: 30 0RF Continued furosemide 40 mg Tablet 40 mg PO BID atorvastatin 80 mg tablet 80 mg PO HS carvedilol 25 mg tablet 25 mg PO BID metolazone 5 mg tablet 2.5 mg PO QDAY PRN clopidogrel 75 mg tablet 75 mg PO QDAY pantoprazole 40 mg tablet,delayed release (DR/EC) 40 mg PO QDAY insulin glargine [Lantus Solostar U-100 Insulin] 100 unit/mL (3 mL) insulin pen 67 unit SUBCUT DAILY Label Comments: [NO ORIGINAL SIG] Eliquis 5 mg Tablet 5 mg PO BID potassium chloride 20 mEq tablet extended release 20 meq PO QDAY Entresto 24-26 mg Tablet 1 tab PO DAILY Follow ups/Referrals Follow ups/Referrals: KAREN EMERSON [Primary Care Provider] - 1 WEEK Instructions Instructions: Living With an Amputation, Phantom Limb Pain, Gangrene, Traumatic Toe Amputation, Diabetic Neuropathy, Preventing Diabetes Mellitus Complications Stand Alone Forms: Excuse From Work or School, Post Hospital Follow Up Care
--- NOTE | 2023-04-18 22:13 | DR.OPNOTE ---
OP NOTE Pre-Op Diagnosis: Critical ischemia of the right leg with loss of ends of toes 2,3&4 Post-Op Diagnosis: same Procedure Date Date Of Procedure: 04/15/23 Procedure: PROCEDURE: Diagnostic aortogram , diagnostic arteriogram right lower extremity ,atherectomy and drug-coated balloon angioplasty of right tibial peroneal trunk , atherectomy and angioplasty of the proximal right anterior tibial artery. NARRATIVE: The patient was taken to the operative suite and placed in the supine position. The left groin and entire right leg were prepped and draped in sterile fashion. The patient was given intravenous sedation supervised by myself. Time out for the procedure obtained . Ultrasound used to identify the left femoral artery and the skin overlying it infiltrated with 0.5% Marcaine. Ultrasound used to guide puncture of the left femoral artery and a 0.012 inch guide wire placed. Incision made over the guide wire at the skin edge with a # 11 knife blade and a micro sheath placed over the guide wire into the left femoral artery. The small wire exchanged for a 0.035 inch Advantage glide wire and the micro sheath exchanged for a 5- Fr vascular sheath . Omni catheter was placed over the guide wire into the aorta and power injector used to perform diagnostic aortogram showing normal aorta and iliac arteries. Patient given 5000 units of IV heparin . The Omni catheter used to steer the guide wire down the right common iliac artery down to the right external iliac artery and the Omni catheter exchanged for a Bainbridge catheter. Using the Bainbridge catheter and the guidewire ,sequential arteriograms performed of the right leg showing good result of previous intervention right superficial femoral artery , severe stenosis of the right tibial-peroneal trunk and complete total occlusion of the proximal 1/3 of the right anterior tibial artery. The five [place] sheath in the left groin exchanged for a 7 Fr destination sheath which was parked in the right femoral artery . Tried to traverse the arterial occlusion from above but was unsuccessful. Since a wire would not pass the occlusion from above we elected to perform a retrograde approach as well. Ultrasound used to identify the right dorsalis pedis artery on the foot, and the skin overlying it infiltrated with 0.5% Marcaine . Ultrasound use to guide puncture of the right dorsalis pedis artery and a 0.012 inch guide wire placed. A slim sheath placed over the guide wire into the right dorsalis pedis artery . Arteriogram carried out to confirm that we were indeed in the anterior tibial artery . From below a guide wire and Bainbridge catheter were used to traverse the obstruction all the way to the proximal right superficial femoral artery. The guide wire threaded through the 7 Fr destination sheath and out the opening of it in the left groin. Bainbridge catheter placed from above over the 0.035 in wire down to the distal right anterior tibial artery. The 0.035 inch Advantage glide wire exchanged through the Bainbridge catheter for 0.014 inch wire from above . Over the 0.014 inch wire we placed the Jet stream atherectomy device and performed atherectomy of right tibial peroneal trunk and the proximal right anterior tibial artery occlusion . Once this was complete the Jet stream device was removed and over the wire we placed a 4x150 mm [place] drug coated balloon over the tibial peroneal trunk and balloon dilated it for 3 minutes. The proximal right anterior tibial artery was balloon dilated for one minute with a 2.5 mm x 220 mm [place] balloon. Post- procedure arteriogram showed excellent results. Wires and devices devices avelino francine from the destination sheath. The destination sheath pulled back into the aorta and a 0.035 inch wire placed . The destination sheath exchanged for an Angioseal device used to close the puncture of the left femoral artery .Hemostatic dressing placed over the left groin puncture site and the patient taken to Same Day Surgery in good condition. Type of Anesthesia: Local (0.5% Marcaine) Anesthesia Comment: plus MAC Findings: severe stenosis of the right tibial peroneal trunk, completely occluded right posterior tibial artery, complete total occlusion of proximal right anterior tibial artery with reconstitution of the right peroneal artery Type of Fluids Used:: Lactated Ringers Total Amount of Fluid Infused:: 750 cc Urine output: 200 cc EBL: 100 cc Complications:: none Needle/Sponge Count:: correct Disposition/Condition: Pt. tolerated procedure without difficulty. Patietn taken to [facility] Day Surgery in stable condition.
== END 2023-04-18 15:41 | disposition home health service (06) | DRG 272 ==
LOC: MED/SURG 14:09
PROVIDERS: ADMIT Surgery; ATTEND Surgery
DX: I70.221 Atherosclerosis of native arteries of extremities with rest pain, right leg; I70.261 Atherosclerosis of native arteries of extremities with gangrene, right leg; L97.519 Non-pressure chronic ulcer of other part of right foot with unspecified severity; I25.10 Atherosclerotic heart disease of native coronary artery without angina pectoris; Z89.512 Acquired absence of left leg below knee; E11.52 Type 2 diabetes mellitus with diabetic peripheral angiopathy with gangrene; I10 Essential (primary) hypertension; Z79.01 Long term (current) use of anticoagulants; N18.9 Chronic kidney disease, unspecified

== ENCOUNTER 2023-07-18 12:11 | Inpatient (IN) ==
[2023-07-18 13:56] VITALS: BMI 43.9
--- NOTE | 2023-07-18 14:24 | EKG ---
Test Reason : CRITICAL ISCHEMIA RIGTH LEG Blood Pressure : */* mmHG Vent. Rate : 70 BPM Atrial Rate : 70 BPM P-R Int : * ms QRS Dur : 162 ms QT Int : 526 ms P-R-T Axes : * 125 91 degrees QTc Int : 568 ms Ventricular-paced rhythm Biventricular pacemaker detected Abnormal ECG When compared with ECG of 15-APR-2023 05:54, Vent. rate has decreased BY 3 BPM Confirmed by Greg Crooks ([id number]) on 07/20/2023 4:51:30 PM Referred By: Confirmed By: Greg Crooks
[2023-07-18] MEDS ORDERED: HEPARIN SODIUM INJ 5000 UNITS IVP ONE (14:35)
[2023-07-18 14:54] LABS: BASOPHILS % (AUTO) 0.7 % (0.2-1.0); EOSINOPHILS # (AUTO) 0.2 x10^3/uL (0.0-0.2); EOSINOPHILS % (AUTO) 2.7 % (0.9-2.9); HEMATOCRIT 37.2 % (42.0-54.0); HEMOGLOBIN 12.3 g/dL (13.5-18.0); LYMPHOCYTES # (AUTO) 0.8 X10^3/uL (1.3-2.9); LYMPHOCYTES % (AUTO) 12.2 % (21.0-51.0); MEAN CORPUSCULAR HEMOGLOBIN 29.7 pg (27.0-34.0); MEAN CORPUSCULAR HGB CONC 33.2 g/dL (33.0-35.0); MEAN CORPUSCULAR VOLUME 89.5 fL (80.0-100.0); MEAN PLATELET VOLUME 7.2 fL (7.4-11.0); MONOCYTES # (AUTO) 0.4 x10^3/uL (0.3-0.8); MONOCYTES % (AUTO) 6.2 % (0.0-13.0); NEUTROPHILS # (AUTO) 5.4 x10^3/uL (2.2-4.8); NEUTROPHILS % (AUTO) 78.2 % (42.0-75.0); PLATELET COUNT 274 X10^3/uL (150.0-450.0); RED BLOOD COUNT 4.15 X10^6/uL (4.7-6.0); RED CELL DISTRIBUTION WIDTH 19.7 % (11.6-16.5); WHITE BLOOD COUNT 6.9 X10^3/uL (3.6-10.0)
[2023-07-18 14:58] LABS: ALANINE AMINOTRANSFERASE 17 Units/L (12-78); ALBUMIN 2.1 g/dL (3.4-5.0); ALKALINE PHOSPHATASE 155 Units/L (46-116); ASPARTATE AMINO TRANSFERASE 13 Units/L (15-37); BLOOD UREA NITROGEN 26 mg/dL (7-18); CALCIUM 7.8 mg/dL (8.5-10.1); CARBON DIOXIDE 34.8 mmol/L (21-32); CHLORIDE 98 mmol/L (98-107); COR CA(FOR HYPOALB) 9.3 mg/dL (8.5-10.1); COR NA(FOR HYPERGLY) 140 mmol/L (136-145); CREATININE 1.35 mg/dL (0.70-1.30); GLUCOSE 163 mg/dL (65-99); INR 1.11 (0.8-1.3); POTASSIUM 3.9 mmol/L (3.5-5.1); SODIUM 138 mmol/L (136-145); TOTAL PROTEIN 6.2 g/dL (6.4-8.2); eGFR NON BLACK RACES 56 (>60)
[2023-07-18] MEDS: LR 1,000 ML IV 1,000 ML IV SCH (15:15)
[2023-07-18] MEDS: HEPARIN SODIUM IN D5W 25,000 UNITS/500 ML BAG IV PRN (15:50)
[2023-07-18] MEDS: LASIX PO SCH (16:59)
[2023-07-18] MEDS ORDERED: BETADINE SOLN ONE (17:04)
[2023-07-18 17:05] LABS: BILIRUBIN,URINE NEGATIVE (NEGATIVE); BLOOD/HEMOGLOBIN,URINE NEGATIVE (NEGATIVE); GLUCOSE, URINE NEGATIVE (NEGATIVE); KETONES,URINE NEGATIVE (NEGATIVE); LEUKOCYTE ESTERASE ,URINE NEGATIVE (NEGATIVE); NITRITES,URINE NEGATIVE (NEGATIVE); PH,URINE 6.5 (5.0 - 8.0); PROTEIN,URINE 1+ (NEGATIVE); UROBILINOGEN,URINE 1+ (NORMAL)
[2023-07-18 17:35] LABS: APPEARANCE,URINE CLEAR (CLEAR); BACTERIA,URINE NEGATIVE /HPF (NEGATIVE); COLOR,URINE YELLOW (YELLOW); RBC,URINE 0-2 /HPF (0-3); SQUAMOUS EPITHELIAL CELL,UR NEGATIVE /HPF (NEGATIVE)
[2023-07-18] MEDS: COREG TAB 25 MG PO SCH (20:04)
[2023-07-18] MEDS: LIPITOR TAB 80 MG PO SCH (20:04)
[2023-07-18] MEDS: SNACK - Diabetic Appropriate PO SCH (20:13)
[2023-07-18] MEDS ORDERED: ELIQUIS PO SCH (21:00)
--- NOTE | 2023-07-18 21:24 | RAD ---
EXAM:CHEST, 1 VIEWHISTORY:PRE OP VAS SX;COMPARISON:April 13, 2023TECHNIQUE:Chest radiographic imaging 1 view AP projectionFINDINGS:Moderate cardiomegaly.Status post median sternotomy/CABG.Pacemaker in place.No focal infiltrate.No acute osseous abnormality.No pleural effusion.No pneumothorax.Soft tissues are unremarkable.No acute osseous abnormality.IMPRESSION:No imaging findings of acute cardiopulmonary disease or significant interval changes.THIS IS AN ELECTRONICALLY VERIFIED FINAL REPORT07/18/2023 9:20 PM - Electronically signed by Josué Mensah MD
--- NOTE | 2023-07-18 21:47 | DR.UPDATE ---
H&P UPDATE Review Yes Any changes to H&P?: No
[2023-07-19] MEDS: LR 1,000 ML IV 1,000 ML IV SCH ×2 (04:14→16:40)
[2023-07-19 06:52] LABS: INR 1.16 (0.8-1.3)
[2023-07-19] MEDS: SANTYL EXT SCH (08:49)
[2023-07-19] MEDS: LANTUS SC SCH (08:50)
[2023-07-19] MEDS: PROTONIX TAB 40 MG PO SCH (08:51)
[2023-07-19] MEDS: PLAVIX PO SCH (08:51)
[2023-07-19] MEDS: COREG TAB 25 MG PO SCH ×2 (08:51→21:12)
[2023-07-19] MEDS: K-DUR TAB 20 MEQ PO SCH (08:51)
[2023-07-19] MEDS: LASIX PO SCH ×2 (08:51→16:40)
[2023-07-19] MEDS: HEPARIN SODIUM IN D5W 25,000 UNITS/500 ML BAG IV PRN (14:15)
[2023-07-19] MEDS ORDERED: HEPARIN SODIUM INJ 5000 UNITS IVP ONE (14:20)
[2023-07-19] MEDS: SNACK - Diabetic Appropriate PO SCH ×2 (19:30→19:31)
[2023-07-19] MEDS: LIPITOR TAB 80 MG PO SCH (21:12)
--- NOTE | 2023-07-20 00:20 | NOTE.SOAP ---
Soap Note Note for Day of Date of Exam: 07/19/23 Subjective Data Subjective Data: Patient on heparin drip . Patient is stable Objective Data Temperature: 98.2 F Pulse Rate: 69 Respiratory Rate: 4 Blood Pressure: 154/72 O2 Sat by Pulse Oximetry: 97 Objective Data: No palpable pulse to the right leg. Left BKA. Wound right medial foot over shaft of the 1st metatarsal. CTA shows significant disease of the right SFA with severe disease of the right anterior tibial and right posterior tibial arteries Assessment Assessment: critical ischemia right leg Plan Plan: Continue heparin drip. Plan right leg peripheral intervention.
[2023-07-20] MEDS ORDERED: HEPARIN SODIUM INJ 5000 UNITS IVP ONE (03:11)
[2023-07-20] MEDS: LR 1,000 ML IV 1,000 ML IV SCH ×3 (05:06→17:08)
[2023-07-20 09:33] LABS: BASOPHILS # (AUTO) 0.1 X10^3/uL (0.0-0.1); BASOPHILS % (AUTO) 0.7 % (0.2-1.0); HEMOGLOBIN 10.8 g/dL (13.5-18.0); WHITE BLOOD COUNT 7.7 X10^3/uL (3.6-10.0)
[2023-07-20 09:38] LABS: EOSINOPHILS # (AUTO) 0.2 x10^3/uL (0.0-0.2); LYMPHOCYTES # (AUTO) 0.8 X10^3/uL (1.3-2.9); LYMPHOCYTES % (AUTO) 9.9 % (21.0-51.0); MEAN CORPUSCULAR HEMOGLOBIN 30.1 pg (27.0-34.0); MEAN CORPUSCULAR HGB CONC 33.9 g/dL (33.0-35.0); MEAN PLATELET VOLUME 7.2 fL (7.4-11.0); MONOCYTES # (AUTO) 0.6 x10^3/uL (0.3-0.8); MONOCYTES % (AUTO) 7.3 % (0.0-13.0); NEUTROPHILS # (AUTO) 6.2 x10^3/uL (2.2-4.8); NEUTROPHILS % (AUTO) 80.1 % (42.0-75.0); PLATELET COUNT 243 X10^3/uL (150.0-450.0); RED CELL DISTRIBUTION WIDTH 19.7 % (11.6-16.5)
[2023-07-20 09:41] LABS: ALANINE AMINOTRANSFERASE 17 Units/L (12-78); ALBUMIN 1.8 g/dL (3.4-5.0); ALKALINE PHOSPHATASE 128 Units/L (46-116); ASPARTATE AMINO TRANSFERASE 13 Units/L (15-37); BLOOD UREA NITROGEN 21 mg/dL (7-18); CALCIUM 7.5 mg/dL (8.5-10.1); CARBON DIOXIDE 33.8 mmol/L (21-32); CHLORIDE 101 mmol/L (98-107); COR CA(FOR HYPOALB) 9.3 mg/dL (8.5-10.1); COR NA(FOR HYPERGLY) 141 mmol/L (136-145); CREATININE 1.47 mg/dL (0.70-1.30); GLUCOSE 198 mg/dL (65-99); POTASSIUM 3.5 mmol/L (3.5-5.1); SODIUM 139 mmol/L (136-145); TOTAL PROTEIN 5.4 g/dL (6.4-8.2); eGFR NON BLACK RACES 51 (>60)
[2023-07-20] MEDS: PLAVIX PO SCH (09:54)
[2023-07-20] MEDS: LASIX PO SCH ×2 (09:54→16:30)
[2023-07-20] MEDS: K-DUR TAB 20 MEQ PO SCH (09:55)
[2023-07-20] MEDS: PROTONIX TAB 40 MG PO SCH (09:55)
[2023-07-20] MEDS: COREG TAB 25 MG PO SCH ×2 (09:55→20:15)
[2023-07-20] MEDS: LANTUS SC SCH (09:56)
[2023-07-20] MEDS: SANTYL EXT SCH (10:01)
[2023-07-20] MEDS: HEPARIN SODIUM IN D5W 25,000 UNITS/500 ML BAG IV PRN (17:05)
[2023-07-20] MEDS: SNACK - Diabetic Appropriate PO SCH (20:15)
[2023-07-20] MEDS: LIPITOR TAB 80 MG PO SCH (20:16)
[2023-07-21] MEDS: PROTONIX TAB 40 MG PO SCH (08:48)
[2023-07-21] MEDS: LR 1,000 ML IV 1,000 ML IV SCH ×2 (08:48→20:54)
[2023-07-21] MEDS: COREG TAB 25 MG PO SCH ×2 (08:48→20:54)
[2023-07-21] MEDS: LANTUS SC SCH (08:48)
[2023-07-21] MEDS: K-DUR TAB 20 MEQ PO SCH ×2 (08:48→20:54)
[2023-07-21] MEDS: LASIX PO SCH ×2 (08:49→16:51)
[2023-07-21] MEDS: PLAVIX PO SCH (08:49)
[2023-07-21] MEDS: HEPARIN SODIUM IN D5W 25,000 UNITS/500 ML BAG IV PRN (13:44)
--- NOTE | 2023-07-21 18:20 | NOTE.SOAP ---
Soap Note Note for Day of Date of Exam: 08/19/23 Subjective Data Subjective Data: Patient stable on Heparin drip. Wound right foot stable. Still planning arterial intervention right leg on Saturday . Objective Data Temperature: 97.5 F Pulse Rate: 69 Respiratory Rate: 18 Blood Pressure: 136/60 O2 Sat by Pulse Oximetry: 96 Objective Data: wound right foot stable. foot warm . Assessment Assessment: critical ischemia right leg Plan Plan: arterial intervention of the right leg to the perform tomorrow .risk and benefits discussed with the patient .
--- NOTE | 2023-07-21 18:22 | NOTE.SOAP ---
Soap Note Note for Day of Date of Exam: 07/21/23 Subjective Data Subjective Data: no change from yesterday Objective Data Objective Data: vital signs stable. Labwork stable. Assessment Assessment: Critical ischemia right leg Plan Plan: to operating room for our operative invention tomorrow
[2023-07-21] MEDS ORDERED: HIBICLENS WASH EXT ONE (19:44)
[2023-07-21] MEDS: SNACK - Diabetic Appropriate PO SCH (20:54)
[2023-07-21] MEDS: LIPITOR TAB 80 MG PO SCH (20:55)
[2023-07-22] MEDS ORDERED: CONSULT PHARMACY - POTASSIUM & MAGNESIUM XX SCH (06:00)
[2023-07-22] MEDS: LANTUS SC SCH (09:00)
[2023-07-22] MEDS ORDERED: MAG-OX TAB PO SCH (09:00)
[2023-07-22] MEDS: PROTONIX TAB 40 MG PO SCH (09:59)
[2023-07-22] MEDS ORDERED: K-DUR TAB 20 MEQ PO SCH (10:00)
[2023-07-22] MEDS: COREG TAB 25 MG PO SCH ×2 (10:00→20:39)
[2023-07-22] MEDS: HEPARIN SODIUM IN D5W 25,000 UNITS/500 ML BAG IV PRN (10:18)
[2023-07-22] MEDS ORDERED: ANCEF VIAL 1 GRAM ONE (13:12)
[2023-07-22] MEDS ORDERED: NS 1,000 ML IV 1,000 ML ONE (13:13)
[2023-07-22] MEDS ORDERED: NS 100 ML IV 100 ML ONE (13:14)
[2023-07-22] MEDS ORDERED: DIPRIVAN VIAL 40 ML ONE (13:45)
[2023-07-22] MEDS ORDERED: MARCAINE 0.5% ONE (13:46)
[2023-07-22] MEDS ORDERED: FENTANYL VIAL INJ 100 mcg ONE (13:47)
[2023-07-22] MEDS ORDERED: HEPARIN SODIUM IN D5W 75,000 UNITS/1,500 ML BAG ONE (13:47)
[2023-07-22] MEDS ORDERED: KETAMINE 50 MG/5 ML-NACL SYRNG ONE (13:47)
[2023-07-22] MEDS ORDERED: VERSED ONE (13:47)
[2023-07-22] MEDS ORDERED: HEPARIN SODIUM INJ 5000 UNITS ONE (13:49)
[2023-07-22] MEDS ORDERED: BETADINE SOLN ONE (14:03)
[2023-07-22] MEDS ORDERED: VISIPAQUE 100 ML ONE (14:07)
--- NOTE | 2023-07-22 15:51 | OR.IMMED ---
IMMEDIATE POST-OP NOTE Immediate Post-Op Note Date of surgery/procedure: 07/22/23 Pre-Op Diagnosis: Critical ischemia right leg Post-Op Diagnosis: same Procedure: Aortogram, arteriogram right leg , stenting distal right superficial femoral artery Description of Procedure: dictated Surgeon/Trimming Cutter: Breonna Findings: severe stenosis distal right SFA, occluded right posterior tibial artery, small peroneal with proximal 10 cm length of occlusion, occluded right proximal anterior tibial artery with large collateral from above reconstituting the distal anterior tibial artery , multiple small collateral arteries around the right ankle. Estimated Blood Loss: < 50 cc Complications: none Progress Notes: Return to ICU, start diet, hold heparin, begin XARELTO 2.5 mg po BID . Hopefully discharge tomorrow. Looking for placement at [facility] in [place] as per the patient .
[2023-07-22] MEDS: PLAVIX PO SCH (16:00)
[2023-07-22] MEDS: K-DUR TAB 20 MEQ PO SCH ×2 (16:00→20:50)
[2023-07-22] MEDS: LR 1,000 ML IV 1,000 ML IV SCH ×3 (16:13→23:52)
[2023-07-22] MEDS: LASIX PO SCH ×2 (17:07→17:49)
[2023-07-22] MEDS: PERCOCET TAB 5/325 MG PO PRN ×2 (18:46→23:55)
[2023-07-22] MEDS: XARELTO PO SCH (20:38)
[2023-07-22] MEDS: MAG-OX TAB PO SCH (20:39)
[2023-07-22] MEDS: LIPITOR TAB 80 MG PO SCH (20:39)
[2023-07-22] MEDS: SNACK - Diabetic Appropriate PO SCH (20:49)
[2023-07-23 04:54] LABS: BASOPHILS # (AUTO) 0.1 X10^3/uL (0.0-0.1); BASOPHILS % (AUTO) 0.8 % (0.2-1.0); EOSINOPHILS # (AUTO) 0.1 x10^3/uL (0.0-0.2); EOSINOPHILS % (AUTO) 1.4 % (0.9-2.9); HEMATOCRIT 30.3 % (42.0-54.0); HEMOGLOBIN 10.4 g/dL (13.5-18.0); LYMPHOCYTES # (AUTO) 0.8 X10^3/uL (1.3-2.9); LYMPHOCYTES % (AUTO) 10.2 % (21.0-51.0); MEAN CORPUSCULAR HEMOGLOBIN 30.4 pg (27.0-34.0); MEAN CORPUSCULAR HGB CONC 34.3 g/dL (33.0-35.0); MEAN CORPUSCULAR VOLUME 88.6 fL (80.0-100.0); MEAN PLATELET VOLUME 7.5 fL (7.4-11.0); MONOCYTES # (AUTO) 0.8 x10^3/uL (0.3-0.8); MONOCYTES % (AUTO) 10.7 % (0.0-13.0); NEUTROPHILS # (AUTO) 5.9 x10^3/uL (2.2-4.8); NEUTROPHILS % (AUTO) 76.9 % (42.0-75.0); PLATELET COUNT 245 X10^3/uL (150.0-450.0); RED BLOOD COUNT 3.42 X10^6/uL (4.7-6.0); RED CELL DISTRIBUTION WIDTH 21.1 % (11.6-16.5); WHITE BLOOD COUNT 7.7 X10^3/uL (3.6-10.0)
[2023-07-23 04:57] LABS: CALCIUM 7.7 mg/dL (8.5-10.1); CARBON DIOXIDE 33.8 mmol/L (21-32); CREATININE 1.49 mg/dL (0.70-1.30); MAGNESIUM 1.5 mg/dL (2.0-2.9); POTASSIUM 4.3 mmol/L (3.5-5.1)
[2023-07-23 05:14] LABS: ANISOCYTOSIS 1+; BURR CELLS SLIGHT; OVALOCYTES SLIGHT; PLATELET MORPHOLOGY COMMENT NORMAL (NORMAL)
[2023-07-23 05:15] LABS: SCHISTOCYTES SLIGHT
[2023-07-23] MEDS ORDERED: CONSULT PHARMACY - POTASSIUM & MAGNESIUM XX SCH (06:00)
[2023-07-23] MEDS: MAG-OX TAB PO SCH ×2 (09:27→20:14)
[2023-07-23] MEDS: COREG TAB 25 MG PO SCH ×2 (09:28→20:14)
[2023-07-23] MEDS: XARELTO PO SCH ×2 (09:29→20:14)
[2023-07-23] MEDS: PLAVIX PO SCH (09:29)
[2023-07-23] MEDS: PROTONIX TAB 40 MG PO SCH (09:29)
[2023-07-23] MEDS: LR 1,000 ML IV 1,000 ML IV SCH ×3 (09:30→23:04)
[2023-07-23] MEDS: K-DUR TAB 20 MEQ PO SCH ×2 (09:30→20:14)
[2023-07-23] MEDS: LASIX PO SCH ×2 (09:33→18:00)
[2023-07-23] MEDS: PERCOCET TAB 5/325 MG PO PRN ×2 (09:36→19:07)
[2023-07-23] MEDS: LANTUS SC SCH (09:37)
[2023-07-23] MEDS ORDERED: MAG-OX TAB PO SCH (10:00)
[2023-07-23] MEDS: LIPITOR TAB 80 MG PO SCH (20:14)
[2023-07-23] MEDS: SNACK - Diabetic Appropriate PO SCH (20:14)
[2023-07-23 20:42] VITALS: PULSE 70
--- NOTE | 2023-07-23 23:36 | NOTE.SOAP ---
Soap Note Note for Day of Date of Exam: 07/23/23 Subjective Data Subjective Data: POD # 1 after stenting right SFA . Awaiting placement in rehabilitation facility. Objective Data Temperature: 97.8 F Pulse Rate: 70 Respiratory Rate: 20 Blood Pressure: 140/65 O2 Sat by Pulse Oximetry: 92 Objective Data: Right foot warm, Biphasic doppler signal right anterior tibial artery , no signal right posterior tibial artery. Cr=1.49, Hgb=10.4 Assessment Assessment: critical limb threatening ischemia right leg , s/p intervention Plan Plan: Continue po Xarelto and Plavix , awaiting placement.
[2023-07-24 05:32] LABS: ALBUMIN 1.6 g/dL (3.4-5.0); CALCIUM 7.8 mg/dL (8.5-10.1); CARBON DIOXIDE 35.8 mmol/L (21-32); COR CA(FOR HYPOALB) 9.7 mg/dL (8.5-10.1); CREATININE 1.69 mg/dL (0.70-1.30); MAGNESIUM 1.6 mg/dL (2.0-2.9); POTASSIUM 4.5 mmol/L (3.5-5.1); TOTAL PROTEIN 5.9 g/dL (6.4-8.2)
[2023-07-24] MEDS ORDERED: CONSULT PHARMACY - POTASSIUM & MAGNESIUM XX SCH (06:00)
[2023-07-24] MEDS: PERCOCET TAB 5/325 MG PO PRN ×2 (06:30→12:10)
[2023-07-24 08:10] VITALS: RESP 18; O2SAT 94
[2023-07-24] MEDS: PROTONIX TAB 40 MG PO SCH (08:43)
[2023-07-24] MEDS: COREG TAB 25 MG PO SCH (08:43)
[2023-07-24] MEDS: XARELTO PO SCH (08:44)
[2023-07-24] MEDS: LASIX PO SCH (08:44)
[2023-07-24] MEDS: PLAVIX PO SCH (08:44)
[2023-07-24] MEDS: LANTUS SC SCH (08:45)
[2023-07-24] MEDS: LR 1,000 ML IV 1,000 ML IV SCH ×2 (09:00→13:14)
[2023-07-24] MEDS ORDERED: MAG-OX TAB PO SCH ×2 (10:00→14:00)
[2023-07-24] MEDS ORDERED: NEOSPORIN OINT TOP PRN (10:10)
[2023-07-24 12:27] VITALS: BP 130/61; TEMP 97.8
--- NOTE | 2023-07-24 12:30 | W.DIS.FURT ---
Summary of Discharge Discharge Summary of Date Date of Exam: 07/24/23 Admission Date Date of Admission: 07/17/23 Admission Diagnosis Hospital Course: 68 yo male with significant peripheral vascular disease with past history of left below knee amputation. He has had intervention of the right leg with atherectomy and drug-coated balloon angioplasty within the last 6 months but now non-healing wounds to the right medial foot and right heel and repeat Doppler study showed significant disease. He was admitted and placed on a Heparin drip. CT angiogram showed severe stenosis of the distal right superficial femoral artery with poor run off. He was placed on Heparin drip and then taken to the operating Suite on SaturdayJuly 22 where he underwent stenting of the distal right superficial femoral artery. . His only runoff is the anterior tibial artery which is small and reconstitutes from a large collateral branch proximally.. The bricklayer apprentice tibial and peroneal arteries are occluded. However, he does have significant collateral flow of the foot. He has done well and has a biphasic doppler signal in the anterior tibial artery . He will be discharged to [facility] in [facility] and he will continue his usual medications including Xarelto and aspirin. I will see him in the office in 2 weeks in follow-up. Vital Signs: Vital Signs (72 hours) 07/21/23 18:20 07/23/23 23:36 07/21/23 12:00 Temperature 97.5 F L 97.8 F 97.3 F L Pulse Rate 69 70 69 Respiratory Rate 18 20 18 Blood Pressure 136/60 140/65 176/77 O2 Sat by Pulse Oximetry 96 92 L 96 Oxygen Delivery Method Room Air Oxygen Flow Rate FIO2% 07/21/23 13:00 07/21/23 14:00 07/21/23 14:21 Temperature Pulse Rate 69 69 69 Respiratory Rate 12 23 28 H Blood Pressure 188/84 185/74 139/64 O2 Sat by Pulse Oximetry 98 96 96 Oxygen Delivery Method Room Air Room Air Room Air Oxygen Flow Rate FIO2% 07/21/23 15:00 07/21/23 16:00 07/21/23 17:00 Temperature 97.5 F L Pulse Rate 69 69 69 Respiratory Rate 20 19 18 Blood Pressure 125/60 133/59 136/60 O2 Sat by Pulse Oximetry 95 94 L 96 Oxygen Delivery Method Room Air Room Air Room Air Oxygen Flow Rate FIO2% 07/21/23 18:00 07/21/23 19:00 07/21/23 19:00 Temperature Pulse Rate 69 85 Respiratory Rate 18 16 Blood Pressure 138/63 131/59 O2 Sat by Pulse Oximetry 96 96 Oxygen Delivery Method Room Air Room Air Nasal Cannula Oxygen Flow Rate 2 FIO2% 07/21/23 20:00 07/21/23 21:00 07/21/23 21:15 Temperature 99.1 F Pulse Rate 90 69 Respiratory Rate 23 18 Blood Pressure 143/63 196/76 176/76 O2 Sat by Pulse Oximetry 98 98 Oxygen Delivery Method Nasal Cannula CPAP Oxygen Flow Rate 2 FIO2% 07/21/23 23:00 07/21/23 22:00 07/21/23 21:05 Temperature Pulse Rate 69 70 Respiratory Rate 18 18 Blood Pressure 184/81 180/81 O2 Sat by Pulse Oximetry 98 98 Oxygen Delivery Method CPAP CPAP CPAP Oxygen Flow Rate 4 FIO2% 36 07/22/23 00:00 07/22/23 01:00 07/22/23 02:00 Temperature 97.6 F Pulse Rate 70 69 69 Respiratory Rate 19 20 20 Blood Pressure 176/76 162/71 168/72 O2 Sat by Pulse Oximetry 98 98 98 Oxygen Delivery Method CPAP CPAP CPAP Oxygen Flow Rate FIO2% 07/22/23 03:00 07/22/23 04:00 07/22/23 05:00 Temperature 97.6 F Pulse Rate 70 69 69 Respiratory Rate 18 18 18 Blood Pressure 166/77 157/72 144/64 O2 Sat by Pulse Oximetry 98 100 96 Oxygen Delivery Method CPAP CPAP CPAP Oxygen Flow Rate FIO2% 07/22/23 06:00 07/21/23 14:20 07/21/23 15:00 Temperature Pulse Rate 69 69 Respiratory Rate 18 23 Blood Pressure 150/70 139/65 O2 Sat by Pulse Oximetry 95 94 L Oxygen Delivery Method CPAP Oxygen Flow Rate FIO2% 07/21/23 15:01 07/21/23 15:01 07/21/23 16:00 Temperature Pulse Rate 69 69 Respiratory Rate 29 H 19 Blood Pressure 125/60 O2 Sat by Pulse Oximetry 95 94 L Oxygen Delivery Method Oxygen Flow Rate FIO2% 07/21/23 16:00 07/21/23 17:00 07/21/23 17:00 Temperature Pulse Rate 69 Respiratory Rate 18 Blood Pressure 133/59 136/60 O2 Sat by Pulse Oximetry 96 Oxygen Delivery Method Oxygen Flow Rate FIO2% 07/21/23 18:00 07/21/23 18:00 07/21/23 19:00 Temperature Pulse Rate 69 69 Respiratory Rate 18 15 Blood Pressure 138/63 O2 Sat by Pulse Oximetry 96 95 Oxygen Delivery Method Oxygen Flow Rate FIO2% 07/21/23 19:01 07/21/23 19:01 07/21/23 20:00 Temperature Pulse Rate 69 69 Respiratory Rate 9 L 23 Blood Pressure 131/59 O2 Sat by Pulse Oximetry 96 94 L Oxygen Delivery Method Oxygen Flow Rate FIO2% 07/21/23 20:00 07/21/23 21:00 07/21/23 21:10 Temperature Pulse Rate 69 Respiratory Rate 42 H Blood Pressure 143/63 195/76 O2 Sat by Pulse Oximetry 97 Oxygen Delivery Method Oxygen Flow Rate FIO2% 07/21/23 21:10 07/21/23 21:10 07/21/23 22:00 Temperature Pulse Rate 69 69 Respiratory Rate 28 H 21 Blood Pressure 195/76 O2 Sat by Pulse Oximetry 98 96 Oxygen Delivery Method Oxygen Flow Rate FIO2% 07/21/23 22:01 07/21/23 22:01 07/21/23 23:00 Temperature Pulse Rate 69 Respiratory Rate 21 Blood Pressure 180/81 184/81 O2 Sat by Pulse Oximetry 95 Oxygen Delivery Method Oxygen Flow Rate FIO2% 07/21/23 23:00 07/22/23 00:00 07/22/23 00:01 Temperature Pulse Rate 69 69 Respiratory Rate 21 22 Blood Pressure 170/100 O2 Sat by Pulse Oximetry 100 98 Oxygen Delivery Method Oxygen Flow Rate FIO2% 07/22/23 00:01 07/22/23 00:03 07/22/23 00:03 Temperature Pulse Rate 69 Respiratory Rate 21 Blood Pressure 175/76 175/76 O2 Sat by Pulse Oximetry 98 Oxygen Delivery Method Oxygen Flow Rate FIO2% 07/22/23 00:03 07/22/23 01:00 07/22/23 01:01 Temperature Pulse Rate 69 69 69 Respiratory Rate 16 19 19 Blood Pressure O2 Sat by Pulse Oximetry 100 98 100 Oxygen Delivery Method Oxygen Flow Rate FIO2% 07/22/23 01:01 07/22/23 02:00 07/22/23 02:00 Temperature Pulse Rate 69 Respiratory Rate 21 Blood Pressure 162/72 168/73 O2 Sat by Pulse Oximetry 98 Oxygen Delivery Method Oxygen Flow Rate FIO2% 07/22/23 03:00 07/22/23 03:01 07/22/23 03:01 Temperature Pulse Rate 69 69 Respiratory Rate 22 17 Blood Pressure 166/77 O2 Sat by Pulse Oximetry 98 100 Oxygen Delivery Method Oxygen Flow Rate FIO2% 07/22/23 04:00 07/22/23 04:00 07/22/23 05:00 Temperature Pulse Rate 69 Respiratory Rate 18 Blood Pressure 157/72 144/64 O2 Sat by Pulse Oximetry 99 Oxygen Delivery Method Oxygen Flow Rate FIO2% 07/22/23 05:00 07/22/23 06:00 07/22/23 06:00 Temperature Pulse Rate 69 69 Respiratory Rate 10 L 17 Blood Pressure 150/70 O2 Sat by Pulse Oximetry 98 95 Oxygen Delivery Method Oxygen Flow Rate FIO2% 07/22/23 07:00 07/22/23 07:00 07/22/23 08:00 Temperature Pulse Rate 69 Respiratory Rate 18 Blood Pressure 161/77 158/72 O2 Sat by Pulse Oximetry 100 Oxygen Delivery Method Oxygen Flow Rate FIO2% 07/22/23 08:00 07/22/23 09:00 07/22/23 09:00 Temperature 98.7 F Pulse Rate 69 69 Respiratory Rate 19 20 Blood Pressure 181/81 O2 Sat by Pulse Oximetry 97 100 Oxygen Delivery Method Oxygen Flow Rate FIO2% 07/22/23 07:00 07/22/23 13:18 07/22/23 10:00 Temperature 97.0 F L Pulse Rate 70 69 Respiratory Rate 18 21 Blood Pressure 170/82 O2 Sat by Pulse Oximetry 96 92 L Oxygen Delivery Method Room Air Room Air Oxygen Flow Rate FIO2% 07/22/23 10:00 07/22/23 11:00 07/22/23 11:00 Temperature Pulse Rate 69 Respiratory Rate 22 Blood Pressure 160/73 161/73 O2 Sat by Pulse Oximetry 96 Oxygen Delivery Method Oxygen Flow Rate FIO2% 07/22/23 12:00 07/22/23 12:00 07/22/23 13:00 Temperature 99.0 F Pulse Rate 69 69 Respiratory Rate 24 21 Blood Pressure 160/72 O2 Sat by Pulse Oximetry 93 L 94 L Oxygen Delivery Method Oxygen Flow Rate FIO2% 07/22/23 13:00 07/22/23 15:40 07/22/23 15:41 Temperature Pulse Rate 70 Respiratory Rate Blood Pressure 152/72 122/62 O2 Sat by Pulse Oximetry 97 Oxygen Delivery Method Oxygen Flow Rate FIO2% 07/22/23 15:41 07/22/23 15:45 07/22/23 15:45 Temperature Pulse Rate 70 69 Respiratory Rate 21 Blood Pressure 132/67 O2 Sat by Pulse Oximetry 97 98 Oxygen Delivery Method Oxygen Flow Rate FIO2% 07/22/23 16:00 07/22/23 16:00 07/22/23 16:15 Temperature Pulse Rate 69 Respiratory Rate 21 Blood Pressure 150/71 160/75 O2 Sat by Pulse Oximetry 99 Oxygen Delivery Method Oxygen Flow Rate FIO2% 07/22/23 16:15 07/22/23 16:30 07/22/23 16:30 Temperature Pulse Rate 69 69 Respiratory Rate 20 20 Blood Pressure 156/74 O2 Sat by Pulse Oximetry 98 99 Oxygen Delivery Method Oxygen Flow Rate FIO2% 07/22/23 16:45 07/22/23 16:45 07/22/23 17:00 Temperature Pulse Rate 69 Respiratory Rate 36 H Blood Pressure 157/76 159/74 O2 Sat by Pulse Oximetry 99 Oxygen Delivery Method Oxygen Flow Rate FIO2% 07/22/23 17:00 07/22/23 17:15 07/22/23 17:15 Temperature Pulse Rate 69 Respiratory Rate 26 H Blood Pressure 153/79 O2 Sat by Pulse Oximetry 99 100 Oxygen Delivery Method Oxygen Flow Rate FIO2% 07/22/23 17:30 07/22/23 17:30 07/22/23 17:45 Temperature Pulse Rate 69 69 Respiratory Rate 18 18 Blood Pressure 129/61 O2 Sat by Pulse Oximetry 90 L 92 L Oxygen Delivery Method Oxygen Flow Rate FIO2% 07/22/23 17:45 07/22/23 18:00 07/22/23 18:00 Temperature Pulse Rate 69 Respiratory Rate 20 Blood Pressure 131/63 141/72 O2 Sat by Pulse Oximetry 92 L Oxygen Delivery Method Oxygen Flow Rate FIO2% 07/22/23 18:15 07/22/23 18:15 07/22/23 18:30 Temperature Pulse Rate 69 Respiratory Rate 19 Blood Pressure 131/60 128/61 O2 Sat by Pulse Oximetry 93 L Oxygen Delivery Method Oxygen Flow Rate FIO2% 07/22/23 18:30 07/22/23 18:46 07/22/23 19:46 Temperature Pulse Rate 69 Respiratory Rate 19 22 22 Blood Pressure O2 Sat by Pulse Oximetry 91 L Oxygen Delivery Method Oxygen Flow Rate FIO2% 07/22/23 19:00 07/22/23 19:00 07/22/23 20:00 Temperature 97.8 F Pulse Rate 69 69 Respiratory Rate 20 29 H Blood Pressure 127/61 136/65 O2 Sat by Pulse Oximetry 90 L 95 Oxygen Delivery Method Room Air Oxygen Flow Rate FIO2% 07/22/23 21:00 07/22/23 23:42 07/22/23 23:00 Temperature Pulse Rate 69 69 Respiratory Rate 26 H 16 Blood Pressure 142/69 126/64 O2 Sat by Pulse Oximetry 90 L 100 Oxygen Delivery Method Bi-pap Oxygen Flow Rate 4 FIO2% 36 07/22/23 23:55 07/23/23 00:00 07/23/23 01:00 Temperature Pulse Rate 70 69 Respiratory Rate 16 17 18 Blood Pressure 138/70 136/64 O2 Sat by Pulse Oximetry 97 99 Oxygen Delivery Method Oxygen Flow Rate FIO2% 07/23/23 00:55 07/23/23 02:00 07/23/23 03:00 Temperature Pulse Rate 69 69 Respiratory Rate 16 18 14 Blood Pressure 130/63 123/87 O2 Sat by Pulse Oximetry 97 97 Oxygen Delivery Method Oxygen Flow Rate FIO2% 07/23/23 04:00 07/23/23 05:00 07/23/23 06:00 Temperature 98.1 F Pulse Rate 69 69 69 Respiratory Rate 13 14 16 Blood Pressure 126/64 127/65 133/68 O2 Sat by Pulse Oximetry 94 L 95 94 L Oxygen Delivery Method Oxygen Flow Rate FIO2% 07/23/23 07:00 07/22/23 18:45 07/22/23 18:45 Temperature Pulse Rate 69 Respiratory Rate 18 Blood Pressure 131/62 O2 Sat by Pulse Oximetry 94 L Oxygen Delivery Method Room Air Oxygen Flow Rate FIO2% 07/22/23 19:00 07/22/23 19:00 07/22/23 19:15 Temperature Pulse Rate 69 Respiratory Rate 20 Blood Pressure 127/61 123/58 O2 Sat by Pulse Oximetry 90 L Oxygen Delivery Method Oxygen Flow Rate FIO2% 07/22/23 19:15 07/22/23 19:31 07/22/23 19:31 Temperature Pulse Rate 69 69 Respiratory Rate 25 H 41 H Blood Pressure 122/51 O2 Sat by Pulse Oximetry 94 L 93 L Oxygen Delivery Method Oxygen Flow Rate FIO2% 07/22/23 19:46 07/22/23 19:46 07/22/23 20:00 Temperature Pulse Rate 69 69 Respiratory Rate 37 H 22 Blood Pressure 100/55 O2 Sat by Pulse Oximetry 92 L 94 L Oxygen Delivery Method Oxygen Flow Rate FIO2% 07/22/23 20:14 07/22/23 20:14 07/22/23 21:00 Temperature Pulse Rate 69 69 Respiratory Rate 34 H 42 H Blood Pressure 136/65 O2 Sat by Pulse Oximetry 95 94 L Oxygen Delivery Method Oxygen Flow Rate FIO2% 07/22/23 21:16 07/22/23 21:16 07/22/23 22:00 Temperature Pulse Rate 69 69 Respiratory Rate 25 H 23 Blood Pressure 142/69 O2 Sat by Pulse Oximetry 88 L 94 L Oxygen Delivery Method Oxygen Flow Rate FIO2% 07/22/23 23:00 07/22/23 23:50 07/22/23 23:50 Temperature Pulse Rate 69 69 Respiratory Rate 19 19 Blood Pressure 126/64 O2 Sat by Pulse Oximetry 90 L 99 Oxygen Delivery Method Oxygen Flow Rate FIO2% 07/23/23 00:00 07/23/23 00:00 07/23/23 01:00 Temperature Pulse Rate 69 Respiratory Rate 17 Blood Pressure 138/70 136/64 O2 Sat by Pulse Oximetry 97 Oxygen Delivery Method Oxygen Flow Rate FIO2% 07/23/23 01:00 07/23/23 02:00 07/23/23 02:00 Temperature Pulse Rate 69 69 Respiratory Rate 18 16 Blood Pressure 130/63 O2 Sat by Pulse Oximetry 99 97 Oxygen Delivery Method Oxygen Flow Rate FIO2% 07/23/23 02:00 07/23/23 03:00 07/23/23 03:00 Temperature Pulse Rate 69 Respiratory Rate 15 Blood Pressure 130/63 123/62 O2 Sat by Pulse Oximetry 97 Oxygen Delivery Method Oxygen Flow Rate FIO2% 07/23/23 04:00 07/23/23 04:00 07/23/23 05:00 Temperature Pulse Rate 69 Respiratory Rate 14 Blood Pressure 126/64 127/65 O2 Sat by Pulse Oximetry 96 Oxygen Delivery Method Oxygen Flow Rate FIO2% 07/23/23 05:00 07/23/23 06:00 07/23/23 06:00 Temperature Pulse Rate 69 69 Respiratory Rate 14 17 Blood Pressure 133/68 O2 Sat by Pulse Oximetry 95 97 Oxygen Delivery Method Oxygen Flow Rate FIO2% 07/23/23 07:00 07/23/23 07:00 07/23/23 08:00 Temperature 98.5 F Pulse Rate 69 69 Respiratory Rate 17 20 Blood Pressure 137/68 O2 Sat by Pulse Oximetry 97 93 L Oxygen Delivery Method Oxygen Flow Rate FIO2% 07/23/23 08:37 07/23/23 08:37 07/23/23 09:36 Temperature Pulse Rate 69 Respiratory Rate 16 20 Blood Pressure 127/61 O2 Sat by Pulse Oximetry 83 L Oxygen Delivery Method Oxygen Flow Rate FIO2% 07/23/23 09:00 07/23/23 09:00 07/23/23 09:25 Temperature Pulse Rate 69 Respiratory Rate 25 H Blood Pressure 121/69 O2 Sat by Pulse Oximetry 93 L Oxygen Delivery Method Room Air Oxygen Flow Rate FIO2% 07/23/23 10:36 07/23/23 10:00 07/23/23 10:00 Temperature 98.6 F Pulse Rate 69 Respiratory Rate 20 33 H Blood Pressure 175/83 O2 Sat by Pulse Oximetry 88 L Oxygen Delivery Method Oxygen Flow Rate FIO2% 07/23/23 11:00 07/23/23 11:00 07/23/23 12:00 Temperature Pulse Rate 69 Respiratory Rate 20 Blood Pressure 162/76 148/72 O2 Sat by Pulse Oximetry 96 Oxygen Delivery Method Oxygen Flow Rate FIO2% 07/23/23 12:00 07/23/23 13:00 07/23/23 13:01 Temperature Pulse Rate 69 69 69 Respiratory Rate 20 28 H 27 H Blood Pressure O2 Sat by Pulse Oximetry 93 L 93 L 93 L Oxygen Delivery Method Oxygen Flow Rate FIO2% 07/23/23 13:01 07/23/23 14:00 07/23/23 14:01 Temperature Pulse Rate 69 Respiratory Rate 33 H Blood Pressure 118/54 135/60 O2 Sat by Pulse Oximetry 92 L 93 L Oxygen Delivery Method Oxygen Flow Rate FIO2% 07/23/23 14:01 07/23/23 15:00 07/23/23 15:00 Temperature Pulse Rate 69 69 Respiratory Rate 33 H 30 H Blood Pressure 126/59 O2 Sat by Pulse Oximetry 91 L 93 L 91 L Oxygen Delivery Method Oxygen Flow Rate FIO2% 07/23/23 16:00 07/23/23 16:00 07/23/23 16:00 Temperature 98.0 F Pulse Rate 69 Respiratory Rate 17 Blood Pressure 154/72 154/72 O2 Sat by Pulse Oximetry 90 L 95 Oxygen Delivery Method Oxygen Flow Rate FIO2% 07/23/23 17:00 07/23/23 17:01 07/23/23 17:01 Temperature Pulse Rate 69 69 Respiratory Rate 23 22 Blood Pressure 145/66 O2 Sat by Pulse Oximetry 87 L 90 L Oxygen Delivery Method Oxygen Flow Rate FIO2% 07/23/23 18:00 07/23/23 19:07 07/23/23 20:25 Temperature Pulse Rate 69 Respiratory Rate 17 20 Blood Pressure O2 Sat by Pulse Oximetry 88 L Oxygen Delivery Method CPAP Oxygen Flow Rate 4 FIO2% 36 07/23/23 20:07 07/23/23 19:00 07/23/23 19:00 Temperature 97.8 F Pulse Rate 70 Respiratory Rate 18 20 Blood Pressure 140/65 O2 Sat by Pulse Oximetry 92 L Oxygen Delivery Method Room Air Room Air Oxygen Flow Rate FIO2% 07/24/23 00:00 07/24/23 04:00 07/24/23 06:30 Temperature 97.9 F 98.9 F Pulse Rate 70 70 Respiratory Rate 18 18 20 Blood Pressure 149/67 154/71 O2 Sat by Pulse Oximetry 99 99 Oxygen Delivery Method CPAP CPAP Oxygen Flow Rate 4 4 FIO2% 07/24/23 07:30 07/24/23 08:09 07/24/23 07:00 Temperature 97.4 F L Pulse Rate 70 Respiratory Rate 20 18 Blood Pressure 104/55 O2 Sat by Pulse Oximetry 94 L Oxygen Delivery Method Room Air Room Air Oxygen Flow Rate FIO2% 07/24/23 07:30 Temperature Pulse Rate Respiratory Rate Blood Pressure O2 Sat by Pulse Oximetry Oxygen Delivery Method CPAP Oxygen Flow Rate 4 FIO2% 36 Labs: Laboratory Last Values WBC 7.7 X10^3/uL (3.6-10.0) 07/23/23 04:35 RBC 3.42 X10^6/uL (4.7-6.0) L 07/23/23 04:35 Hgb 10.4 g/dL (13.5-18.0) L 07/23/23 04:35 Hct 30.3 % (42.0-54.0) L 07/23/23 04:35 MCV 88.6 fL (80.0-100.0) 07/23/23 04:35 MCH 30.4 pg (27.0-34.0) 07/23/23 04:35 MCHC 34.3 g/dL (33.0-35.0) 07/23/23 04:35 RDW 21.1 % (11.6-16.5) H 07/23/23 04:35 Plt Count 245 X10^3/uL (150.0-450.0) 07/23/23 04:35 Plt Count Comment Adequate (ADEQUATE) 07/23/23 04:35 MPV 7.5 fL (7.4-11.0) 07/23/23 04:35 Neut % (Auto) 76.9 % (42.0-75.0) H 07/23/23 04:35 Lymph % (Auto) 10.2 % (21.0-51.0) L 07/23/23 04:35 Page % (Auto) 10.7 % (0.0-13.0) 07/23/23 04:35 Eos % (Auto) 1.4 % (0.9-2.9) 07/23/23 04:35 Baso % (Auto) 0.8 % (0.2-1.0) 07/23/23 04:35 Neut # (Auto) 5.9 x10^3/uL (2.2-4.8) H 07/23/23 04:35 Lymph # (Auto) 0.8 X10^3/uL (1.3-2.9) L 07/23/23 04:35 Page # (Auto) 0.8 x10^3/uL (0.3-0.8) 07/23/23 04:35 Eos # (Auto) 0.1 x10^3/uL (0.0-0.2) 07/23/23 04:35 Baso # (Auto) 0.1 X10^3/uL (0.0-0.1) 07/23/23 04:35 Absolute Nucleated RBC 0.1 /100WBC 07/23/23 04:35 Plt Morphology Comment Normal (NORMAL) 07/23/23 04:35 RBC Morphology Abnormal (NORMAL) 07/23/23 04:35 Anisocytosis 1+ A 07/23/23 04:35 Ovalocytes Slight A 07/23/23 04:35 [place] Cells Slight A 07/23/23 04:35 Schistocytes Slight A 07/23/23 04:35 PT 14.6 SECONDS (11.8-14.3) 07/19/23 06:35 INR Target Range - 07/19/23 06:35 INR 1.16 (0.8-1.3) 07/19/23 06:35 APTT 43.1 SECONDS (22.9-36.5) H 07/23/23 04:35 PTT Comment - 07/23/23 04:35 Sodium 138 mmol/L (136-145) 07/24/23 04:50 Corrected Sodium 139 mmol/L (136-145) 07/24/23 04:50 Potassium 4.5 mmol/L (3.5-5.1) 07/24/23 04:50 Chloride 100 mmol/L (98-107) 07/24/23 04:50 Carbon Dioxide 35.8 mmol/L (21-32) H 07/24/23 04:50 BUN 29 mg/dL (7-18) H 07/24/23 04:50 Creatinine 1.69 mg/dL (0.70-1.30) H 07/24/23 04:50 Est GFR (MDRD) Af Amer 52 (>60) L 07/24/23 04:50 Est GFR (MDRD) Non-Af 43 (>60) L 07/24/23 04:50 Glucose 149 mg/dL (65-99) H 07/24/23 04:50 POC Glucose (mg/dL) 194 mg/dL (65-99) H 07/24/23 10:51 Calcium 7.8 mg/dL (8.5-10.1) L 07/24/23 04:50 Corrected Calcium 9.7 mg/dL (8.5-10.1) 07/24/23 04:50 Magnesium 1.6 mg/dL (2.0-2.9) L 07/24/23 04:50 Total Bilirubin 0.60 mg/dL (0.2-1.0) 07/24/23 04:50 AST 11 Units/L (15-37) L 07/24/23 04:50 ALT 11 Units/L (12-78) L 07/24/23 04:50 Alkaline Phosphatase 113 Units/L (46-116) 07/24/23 04:50 Total Protein 5.9 g/dL (6.4-8.2) L 07/24/23 04:50 Albumin 1.6 g/dL (3.4-5.0) L 07/24/23 04:50 Globulin 4.3 g/dL (2.5-4.5) 07/24/23 04:50 Albumin/Globulin Ratio 0.4 Ratio (1.1-2.1) L 07/24/23 04:50 Specimen Type Catherized urine 07/18/23 16:55 Urine Color Yellow (YELLOW) 07/18/23 16:55 Urine Appearance Clear (CLEAR) 07/18/23 16:55 Urine pH 6.5 (5.0 - 8.0) 07/18/23 16:55 Ur Specific [place] 1.015 (1.000-1.030) 07/18/23 16:55 Urine Protein 1+ (NEGATIVE) 07/18/23 16:55 Urine Glucose (UA) Negative (NEGATIVE) 07/18/23 16:55 Urine Ketones Negative (NEGATIVE) 07/18/23 16:55 Urine Blood Negative (NEGATIVE) 07/18/23 16:55 Urine Nitrite Negative (NEGATIVE) 07/18/23 16:55 Urine Bilirubin Negative (NEGATIVE) 07/18/23 16:55 Urine Urobilinogen 1+ (NORMAL) 07/18/23 16:55 Ur Leukocyte Esterase Negative (NEGATIVE) 07/18/23 16:55 Urine RBC 0-2 /HPF (0-3) 07/18/23 16:55 Urine WBC 0-2 /HPF (0-5) 07/18/23 16:55 Ur Squamous Epith Cells Negative /HPF (NEGATIVE) 07/18/23 16:55 Urine Bacteria Negative /HPF (NEGATIVE) 07/18/23 16:55 Ur Culture Indicated? No/not indicated 07/18/23 16:55 Reason For Visit: CRITICAL ISCHEMIA RIGHT LEG Discharge Date Discharge Date: 07/24/23 Discharge Diagnosis All Active Problems (Updated 04/18/23 @ 11:55 by Yusuf Ravi) Essential (primary) hypertension (Acute) Coronary artery disease (Acute) Chronic kidney disease (CKD) stage G2/A3, mildly decreased glomerular filtration rate (GFR) between 60-89 mL/min/1.73 square meter and albuminuria creatinine ratio greater than 300 mg/g (Acute) Type 2 diabetes mellitus without complications (Acute) History of left below knee amputation (Acute) Congestive heart failure (Acute) Critical limb ischemia of right lower extremity (Acute) Plan of Treatment: Continue with present treatment and follow up plan. Pt is to keep follow up appointment as instructed and take medications as ordered. Discharge Medications Discharge Medications: No Known Drug Allergies Allergy (Verified 07/18/23 13:29) Discharge Disposition Assessment: See hospital course above. Discharge Plan Discharge Plan Hospital Course: 68 yo male with significant peripheral vascular disease with past history of left below knee amputation. He has had intervention of the right leg with atherectomy and drug-coated balloon angioplasty within the last 6 months but now non-healing wounds to the right medial foot and right heel and repeat Doppler study showed significant disease. He was admitted and placed on a Heparin drip. CT angiogram showed severe stenosis of the distal right superficial femoral artery with poor run off. He was placed on Heparin drip and then taken to the operating Suite on SaturdayJuly 22 where he underwent stenting of the distal right superficial femoral artery. . His only runoff is the anterior tibial artery which is small and reconstitutes from a large collateral branch proximally.. The bricklayer apprentice tibial and peroneal arteries are occluded. However, he does have significant collateral flow of the foot. He has done well and has a biphasic doppler signal in the anterior tibial artery . He will be discharged to [facility] in [facility] and he will continue his usual medications including Xarelto and aspirin. I will see him in the office in 2 weeks in follow-up. Patient Disposition: Disch/Tx to Rehabilitation Fac Condition: Stable Health Concerns: Post Hospitalization: new medications and changes needed to prevent readmission or further decline. Pt educated and given instructions on all concerns. Care Plan Goals: Return to ambulation Plan of Treatment: Continue with present treatment and follow up plan. Pt is to keep follow up appointment as instructed and take medications as ordered. Assessment: See hospital course above. Prescription drug monitoring program results: PDMP reviewed and no concerns identified Prescriptions: New Xarelto 2.5 mg tablet 2.5 mg PO BID Qty: 180 0RF Continued furosemide 40 mg Tablet 40 mg PO BID atorvastatin 80 mg tablet 80 mg PO HS carvedilol 25 mg tablet 25 mg PO BID clopidogrel 75 mg tablet 75 mg PO QDAY pantoprazole 40 mg tablet,delayed release (DR/EC) 40 mg PO QDAY insulin glargine [Lantus Solostar U-100 Insulin] 100 unit/mL (3 mL) insulin pen 67 unit SUBCUT DAILY Patient Comments: [NO ORIGINAL SIG] potassium chloride 20 mEq tablet extended release 20 meq PO QDAY oxycodone-acetaminophen [Percocet] 5-325 mg tablet 1 tab PO Q6H MDD 4 PRNQty: 30 0RF Discontinued Eliquis 5 mg Tablet 5 mg PO BID Orders to Discharge Patient Discharge Orders: Discharge (Routine); Ordered 07/24/23 Ordered By: Yusuf Ravi Follow ups/Referrals Follow ups/Referrals: KELLIE CHAPMAN [Primary Care Provider] - 1 WEEK Instructions Instructions: Endovascular Therapy for Peripheral Vascular Disease, Care After Stand Alone Forms: Excuse From Work or School, Post Hospital Follow Up Care
== END 2023-07-24 14:30 | DRG 253 ==
LOC: ICU 12:32 → MED/SURG 07-23 19:06
PROVIDERS: ADMIT Surgery; ATTEND Surgery